=== PATIENT | male | born 1960 | race Caucasian/White ===

== ENCOUNTER 2018-05-01 23:43 | Emergency (ER) | payer OTHER ==
[~2018-05-01] VITALS: Ht 185.4 cm; Wt 99.8 kg
[2018-05-02 01:31] VITALS: BP 123/82
== END 2018-05-02 03:10 | disposition home or self-care (01) ==
LOC: ER 23:46
DX: L76.82 Other postprocedural complications of skin and subcutaneous tissue (principal)
CPT/HCPCS: 99282; J7030

== ENCOUNTER 2019-02-15 15:19 | Emergency (ER) | payer OTHER ==
[~2019-02-15] VITALS: Ht 170.2 cm; Wt 90.7 kg
[2019-02-15 16:55] LABS: Basophils # (auto) 0 uL; Basophils % (auto) 0.2 % (0.0-2.0); Eosinophils # (auto) 0 uL; Eosinophils % (auto) 0.1 % (0.0-7.0); Hematocrit 34.6 % (41.0-53.0); Hemoglobin 11.1 g/dL (13.5-17.5); Lymphocytes # (auto) 0.9 uL; Mean Corpuscular Volume 81.3 fL (80.0-100.0); Monocytes # (auto) 0.3 uL; Monocytes % (auto) 2.5 % (0.0-12.0); Neutrophils # (auto) 12.9 uL; Neutrophils % (auto) 91.2 % (37.0-80.0); Platelet Count (auto) 537 10^3/uL (140-450); Red Blood Cells 4.26 10^6/uL (4.5-5.90); Red Cell Distribution Width 17.9 % (11.8-14.3); White Blood Cell 14.1 10^3/uL (4.4-10.8)
[2019-02-15 17:06] LABS: Albumin 3.3 g/dL (3.4-5.0); Anion Gap 9 (5-15); Blood Urea Nitrogen 12 mg/dL (7-18); Calcium 9.9 mg/dL (8.5-10.1); Carbon Dioxide 27 mmol/L (21-32); Chloride 99 mmol/L (98-107); Glucose 158 mg/dL (74-106); Potassium 3.9 mmol/L (3.5-5.1); Sodium 135 mmol/L (136-145)
[2019-02-15 17:08] LABS: Alanine Aminotransferase 14 U/L (16-61); Aspartate Aminotransferase 12 U/L (15-37); BUN/Creatinine Ratio 10.5; GFR African American 85 mL/min; GFR Non-African American 70 mL/min
[2019-02-15 17:13] LABS: Alkaline Phosphatase 95 U/L (45-117); Bilirubin, Total 0.5 mg/dL (0.2-1.0); Total Protein 8.2 g/dL (6.4-8.2)
[2019-02-15] MEDS ORDERED: SODIUM CHLORIDE 0.9% 1,000 ML IVB ONE ×2 (19:37→20:20)
[2019-02-15] MEDS ORDERED: HYDROmorphone HCL 2 MG/ML VL IV ONE ×2 (20:15→23:00)
[2019-02-15] MEDS ORDERED: ONDANSETRON HCL 4 MG/2 ML VIAL IV ONE (20:15)
[2019-02-15 20:23] LABS: Magnesium 2.4 mg/dL (1.6-2.6)
[2019-02-15 20:32] LABS: INR 1.1 (0.9-1.15); Partial Thromboplastin Time 27.7 sec (23.78-33.04); Prothrombin Time 11.7 sec (9.27-12.13)
[2019-02-15] MEDS ORDERED: metroNIDAZOLE 500MG/100ML 100 ML IV ONE (23:00)
[2019-02-15] MEDS ORDERED: PROMETHAZINE HCL 25 MG/ML 1ML IV ONE (23:00)
[2019-02-15] MEDS ORDERED: cefTRIAXone 1GM/50ML D5W 50 ML IV ONE (23:00)
[2019-02-16] MEDS ORDERED: HYDROmorphone HCL 2 MG/ML VL IV ONE ×2 (03:00→09:30)
[2019-02-16 04:58] LABS: Urine Bacteria FEW /hpf (None Seen); Urine Blood Negative /uL (Negative); Urine Hyaline Cast FEW /lpf (0 - 2); Urine Mucus FEW (None Seen); Urine Specific Gravity 1.024 (1.001-1.035); Urine WBC 13 /hpf (0 - 3)
[2019-02-16 09:18] VITALS: BP 123/77
[2019-02-16] MEDS ORDERED: PROMETHAZINE HCL 25 MG/ML 1ML IV ONE (09:30)
== END 2019-02-16 09:48 | disposition short-term general hospital (02) ==
LOC: EDBD 15:19 → ER 15:42
DX: K56.609 Unspecified intestinal obstruction, unspecified as to partial versus complete obstruction (principal); K59.00 Constipation, unspecified; C19 Malignant neoplasm of rectosigmoid junction; D64.9 Anemia, unspecified; R07.9 Chest pain, unspecified
CPT/HCPCS: 36415; 71045; 74176; 80053; 81001; 82150; 83690; 83735; 84484; 85025; 85610; 85730; 87040; 93005; 94761; 96361; 96365; 96367; 96375; 96376; 99285; J0696; J1170; J2405; J2550; J3490; J7030

== ENCOUNTER 2020-05-04 12:23 | Inpatient (IN) | payer OTHER ==
[~2020-05-04] VITALS: Ht 177.8 cm; Wt 81.5 kg
[2020-05-04] MEDS ORDERED: SODIUM CHLORIDE 0.9% 500 ML IV ONE (12:33)
[2020-05-04] MEDS ORDERED: HYDROmorphone HCL 2 MG/ML VL IV ONE (12:45)
[2020-05-04] MEDS ORDERED: ONDANSETRON HCL 4 MG/2 ML VIAL IV ONE (12:45)
[2020-05-04 13:23] LABS: Eosinophils # (auto) 0 10 ^3/uL (0-0.8); Lymphocytes # (auto) 0.7 10 ^3/uL (0.4-5.4)
[2020-05-04 13:24] LABS: Basophils # (auto) 0.1 10 ^3/uL (0-0.2); Basophils % (auto) 0.4 % (0.0-2.0); Hematocrit 28.5 % (41.0-53.0); Hemoglobin 8.5 g/dL (13.5-17.5); Lymphocytes % (auto) 3.5 % (10.0-50.0); Mean Corpuscular Hemoglobin 23.2 pg (28.0-32.0); Mean Corpuscular Hgb Conc. 29.7 g/dL (32.0-36.0); Mean Corpuscular Volume 78.3 fL (80.0-100.0); Monocytes # (auto) 0.6 10 ^3/uL (0-1.3); Monocytes % (auto) 2.9 % (0.0-12.0); Neutrophils # (auto) 18.2 10 ^3/uL (1.6-8.6); Neutrophils % (auto) 93.2 % (37.0-80.0); Platelet Count (auto) 646 10^3/uL (140-450); Red Blood Cells 3.64 10^6/uL (4.5-5.90); White Blood Cell 19.6 10^3/uL (4.4-10.8)
[2020-05-04 13:25] LABS: Red Cell Distribution Width 22.8 % (11.8-14.3)
[2020-05-04 13:32] LABS: Albumin 1.8 g/dL (3.4-5.0); Calcium 9.1 mg/dL (8.5-10.1); Potassium 4.8 mmol/L (3.5-5.1)
[2020-05-04 13:36] LABS: BUN/Creatinine Ratio 12.1; Bilirubin, Total 0.4 mg/dL (0.2-1.0)
[2020-05-04 14:34] LABS: Urine Bacteria NONE SEEN /hpf (None Seen); Urine Blood 1+ /uL (Negative); Urine Mucus FEW (None Seen); Urine WBC 915 /hpf (0 - 3); Urine WBC Clumps PRESENT /hpf (None Seen)
[2020-05-04] MEDS ORDERED: cefTRIAXone 1GM/50ML D5W 50 ML IV ONE (15:00)
[2020-05-04] MEDS ORDERED: MORPHINE SULF INJ 2 MG/ML SYRINGE 1ML IV PRN (15:45)
[2020-05-04] MEDS ORDERED: NITROGLYCERIN 0.4 MG SL TAB SL PRN (15:45)
[2020-05-04] MEDS ORDERED: HYDROmorphone HCL 2 MG/ML VL IV PRN (16:30)
[2020-05-04] MEDS ORDERED: cefTRIAXone SOD 1,000 MG VL IM ONE (16:30)
[2020-05-04] MEDS ORDERED: ONDANSETRON HCL 4 MG/2 ML VIAL IV PRN (16:30)
--- NOTE | 2020-05-04 17:13 | NUR ---
MS admit from ER OLIVIER MELÉNDEZ admitted to tele/MS after SBAR received. Patient oriented to SHAGGY CHRISTIANSON, RN primary RN, unit, room, bed, and unit policies regarding patient care and visiting hours. Patient weighed by bedscale and encouraged to call if they need something. All questions and concerns addressed, patient verbalized understanding.
--- NOTE | 2020-05-04 17:30 | NUR ---
Skin Assessment/Drains Upon assessment of patient this RN found multiple drains not previously noted in report. Patient has a left and right nephrostomy tube, right mid back MARTIR drain, and left lower quadrant colostomy bag. Patient also has a left upper chest port-a-cath that cannot be accessed. Additionally, patient has a working Dilaudid pump that is accessed through his right lower quadrant, per label to pump Dilaudid dosage is 1.5 mg Q15 min. No previous mention of Dilaudid pump, will notify MD. Patient noted to have a large mass to rectal area, pictures taken, Optifoam applied. Wound consult ordered per protocol. Patient also states he has not eaten in months, dietary consult ordered per protocol.
[2020-05-04 18:08] VITALS: BP 96/71
[2020-05-04] MEDS ORDERED: HYDR4TAB2 PO (18:59)
--- NOTE | 2020-05-04 19:15 | NUR ---
Call back from MD Call back from Dr. Finn. Made MD aware of patient's unrelieved pain. Notified Dr. Finn of patient's dilaudid pump brought from home and dosage. New orders given to increase frequency of ordered dilaudid. Will adjust existing order.
--- NOTE | 2020-05-04 19:24 | NUR ---
Closing Shift Note Patient resting in bed. Pain reported. Timothy hospitalist. New orders given for frequency dose in pain medication. Report given. Will endorse care to the shift production supervisor RN. Sitter at bedside for safety. Addendum: 05/04/20 at 1925 by SHAGGY CHRISTIANSON RN RN No sitter at bedside.
[2020-05-04] MEDS: HYDROmorphone HCL 2 MG/ML VL IV PRN ×2 (21:30→22:55)
[2020-05-04 22:00] VITALS: BP 103/77
[2020-05-04 22:33] LABS: Basophils # (auto) 0.1 10 ^3/uL (0-0.2); Basophils % (auto) 0.3 % (0.0-2.0); Eosinophils # (auto) 0 10 ^3/uL (0-0.8); Hematocrit 29.5 % (41.0-53.0); Hemoglobin 9.1 g/dL (13.5-17.5); Lymphocytes # (auto) 1.2 10 ^3/uL (0.4-5.4); Lymphocytes % (auto) 4.5 % (10.0-50.0); Mean Corpuscular Hgb Conc. 30.8 g/dL (32.0-36.0); Mean Corpuscular Volume 77.7 fL (80.0-100.0); Monocytes # (auto) 0.8 10 ^3/uL (0-1.3); Monocytes % (auto) 2.9 % (0.0-12.0); Neutrophils # (auto) 23.9 10 ^3/uL (1.6-8.6); Neutrophils % (auto) 92.3 % (37.0-80.0); Platelet Count (auto) 720 10^3/uL (140-450); Red Blood Cells 3.79 10^6/uL (4.5-5.90); White Blood Cell 25.9 10^3/uL (4.4-10.8)
[2020-05-04 22:35] LABS: Red Cell Distribution Width 22.8 % (11.8-14.3)
[2020-05-04 22:50] LABS: Potassium 4.5 mmol/L (3.5-5.1); Sodium 127 mmol/L (136-145)
[2020-05-04 22:51] LABS: Albumin 1.8 g/dL (3.4-5.0); Anion Gap 13 (5-15); Blood Urea Nitrogen 29 mg/dL (7-18); Carbon Dioxide 20 mmol/L (21-32); Chloride 94 mmol/L (98-107); Glucose 97 mg/dL (74-106)
[2020-05-04 22:55] LABS: Alanine Aminotransferase 6 U/L (16-61); Alkaline Phosphatase 135 U/L (45-117); Aspartate Aminotransferase 31 U/L (15-37); BUN/Creatinine Ratio 12.2; Bilirubin, Total 0.3 mg/dL (0.2-1.0); GFR African American 36 mL/min; GFR Non-African American 30 mL/min; Total Protein 8.5 g/dL (6.4-8.2)
--- NOTE | 2020-05-05 00:24 | NUR ---
Opening Shift Note Received report from LOKI Johnson. Assumed care of patient,pt AAOx4 to person, place, time and situation. pt c/o pain 10/10 on WBS. pt educated on use of his personal pain pump and his PRN medications he has available and to call if he is in need of anything. No S/S of distress/SOB or pain. Instructed on POC and to call for assist PRN. Fall precaution measures in place, will continue to monitor for changes Q1hr and PRN.
--- NOTE | 2020-05-05 00:26 | NUR ---
SPECIMEN TRANSPORTER stated pt's oxygen saturation was 85%, pt was immediately assessed and placed on oxygen via NC and oxygen saturations were brought up to 95%. will continue to monitor pt for s/s of respiratory distress Q1H and assess the safety of continual doses of pain medications. pt is aware of this as well and verbally repeats his understanding.
--- NOTE | 2020-05-05 01:00 | NUR ---
pt c/o pain 10/10 despite his own pain pump regulation and fentanyl patches. pt is also verbally requesting to be made a DNR. MD Ng was paged via telephone, still awaiting a call back.
[2020-05-05] MEDS: HYDROmorphone HCL 2 MG/ML VL IV PRN ×9 (01:09→21:36)
--- NOTE | 2020-05-05 01:55 | NUR ---
MD diaz paged for pt a second due to the fact the first page was never responded to.
--- NOTE | 2020-05-05 02:30 | NUR ---
Located MD Ng in his office and spoke to him in person, made MD aware of pt's personal dilauded pain pump and the dosage amount and bolus amount, the fentanyl patches the pt is wearing and their dosages, as well as the fact pt is getting dilauded IV Q1H and his oxygen saturations decrease with no relief in pt's pain. notified MD of pt's DNR request as well. stated that either he or the next shifts doctor will deal with the information given to him.
[2020-05-05 05:00] VITALS: BP 103/74
--- NOTE | 2020-05-05 07:30 | NUR ---
Opening Shift Note Assuming care of patient at this time. Patient is awake and alert. Patient complains of pain 10/10 that is unrelieved by PRN medications. Bed is locked and lowered with side rails up x2. Instructed patient on the plan of care for today and to call for assistance as needed. Call light within reach. Will continue to round hourly and as needed.
[2020-05-05 09:00] VITALS: BP 105/74
[2020-05-05] MEDS ORDERED: cefTRIAXone 1GM/50ML D5W 50 ML IV SCH (10:00)
--- NOTE | 2020-05-05 10:25 | NUR ---
WOUND CARE NOTE: Wound care in to see patient per wound care request regarding "sacral perianal ulcer" that are noted present on admission. Bedside nurse took photograph of patient's wound upon admission for reference. Patient is 60 years old male admitted for Suspected Sepsis, Chronic Pain, Stage 4 colorectal cancer. Patient is resting in bed in Rm. 270B. Patient is awake, alert and oriented. Patient states all over and specially in every movement. He's taking to Dr. Adams and will order him some pain medication. He needs assistance in turning and repositioning and his Artem score is 12. Skin/wound assessment done with the assistance of patient's nurse, LOKI Johnson. 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 Wound is red, raised with moderate serous drainage, with mild odor noted. Cleansed patient's rectal wound with wound cleanser, patted dry with gauze and applied large abd pad. Patient tolerated well, repositioned patient for comfort. LOKI Johnson at bedside. RECOMMENDATION: Nursing to continue with Daily/PRN dressing change to rectal fungating tumor per MD order, Dietary consult, frequent turning and repositioning schedule as condition permits, redistribute pressure points with pillows, air mattress (ordered), frequent annika care/check, keep clean and dry, continue monitoring by wound care while patient is hospitalized. Addendum: 05/05/20 at 1521 by Seema Harper RN Amended: Links added.
[2020-05-05] MEDS ORDERED: LIDOCAINE HCL 5 % TOP OINT 35 GM TOP PRN (10:45)
[2020-05-05] MEDS ORDERED: GABA300C10 PO (11:09)
[2020-05-05] MEDS ORDERED: OXYB5TAB24 PO (11:09)
[2020-05-05] MEDS ORDERED: DOCU100T15 PO (11:10)
[2020-05-05] MEDS ORDERED: MEROPENEM 1GM IVPB 100 ML IV ONE (11:15)
[2020-05-05] MEDS: SUCRALFATE 1 GM/10 ML ORAL SUSP PO SCH ×3 (11:39→21:36)
[2020-05-05] MEDS: LINEZOLID 600MG/300ML 300 ML IV SCH ×2 (11:41→22:26)
[2020-05-05] MEDS: SODIUM CHLORIDE 0.9% 1,000 ML IV SCH (11:44)
--- NOTE | 2020-05-05 12:02 | NUR ---
Assessment Patient is a 60-year-old male who is alert and oriented prior to admission patient lived home with his and functioned with assistance. Per patient his helps him with his ADLs. Per patient he has a hospital bed, wheelchair, walker and shower chair for home use. Advised patient there is a social service consult for hospice. Per patient he is on service with [facility] and would like to resume service with agency. Informed patient clinical information will be faxed to [facility]. Informed patient he has the right to participate in all discharge planning. Patient verbalized understanding discharge plan. Faxed clinical information to [facility]. Per Kira with [facility] they will resume service upon discharge day. Transportation will be arrange upon d/c . Addendum: 05/05/20 at 1203 by JEANNA MAIN Amended: Links added.
--- NOTE | 2020-05-05 12:29 | NUR ---
Nutrition Assessment/consult Note please see attached link for complete assessment [employer] needs BW 66 [id number] kcals (30-33 kcal/kgBW), Est Protein needs: 66-85 gms/day (1.0-1.3 gm/kgBW r/t severe hypoalb). Will continue to monitor and reassess prn. Addendum: 05/05/20 at [address] Amended: Links added.
[2020-05-05 13:00] VITALS: BP 107/78
--- NOTE | 2020-05-05 14:35 | NUR ---
Dressing Change Patient's dressing to perianal area changed once again at this time, lidocaine applied. Patient tolerated well.
[2020-05-05] MEDS: LIDOCAINE HCL 5 % TOP OINT 35 GM TOP PRN (14:37)
--- NOTE | 2020-05-05 14:43 | NUR ---
AIR MATTRESS: Air mattress ordered at [facility]. No ETA given, per tech, entry level truck driver will call for ETA. Reference #[id number]. Please call [facility] at if needed to follow up. Addendum: 05/05/20 at 1444 by Seema Harper RN Amended: Links added.
[2020-05-05] MEDS: OXYBUTYNIN CHL 5 MG TAB PO SCH ×2 (15:30→21:35)
[2020-05-05] MEDS: GABAPENTIN 400 MG CAP PO SCH ×2 (15:30→21:35)
[2020-05-05] MEDS: ONDANSETRON HCL 4 MG/2 ML VIAL IV PRN (16:32)
[2020-05-05 17:00] VITALS: BP 112/75
--- NOTE | 2020-05-05 19:20 | NUR ---
Specialty Bed Specialty Bed is located outside of patient's room. Notified airfield services officer RN that patient needs to be transferred to specialty bed. Kimberly, airfield services officer RN aware.
--- NOTE | 2020-05-05 19:30 | NUR ---
Opening Shift Note Received report from tiffany Johnson RN. Assumed care of patient, awake and alert. No S/S of distress/SOB, but c/o pain to all over body of 10/10. Pain medication given as ordered. Instructed on POC and to call for assist PRN, will continue to monitor for changes Q1hr and PRN. Bed placed in lowest position, bed alarm turned on and call light.
--- NOTE | 2020-05-05 19:30 | NUR ---
Closing Shift Note Patient resting in bed. Patient states pain is unrelieved by pain medication. Notified patient that pain management consult has been called. Report given. Notified associate project manager RNKimberly, that patient needs to be moved to specialty bed. Will endorse care to the associate project manager RN.
[2020-05-05] MEDS: DOCUSATE SOD 100 MG CAP PO SCH (21:35)
[2020-05-05 22:11] VITALS: BP_SYST 119; BP_SYST 172; BP_DIAS 112; BP_DIAS 80
[2020-05-05] MEDS: MEROPENEM 1GM IVPB 100 ML IV SCH (22:22)
[2020-05-06] MEDS: HYDROmorphone HCL 2 MG/ML VL IV PRN ×8 (00:16→23:45)
--- NOTE | 2020-05-06 00:48 | NUR ---
Report given to LOKI Armendariz. Patient is resting in bed with eyes closed, no distress noted and patient just received pain medication as ordered.
--- NOTE | 2020-05-06 00:48 | NUR ---
Assumed care of patient who is resting supine in bed with eyes closed. Respirations are even and non labored. Currently on 2L NC. IV in right wrist is intact and patent. Currently infusing ABX according to orders. Bed is in low locked position with side rails up x2. Call light is within reach and patient encouraged to call for assistance when needed. Will continue to monitor for changes PRN.
[2020-05-06] MEDS: SODIUM CHLORIDE 0.9% 1,000 ML IV SCH ×2 (01:23→13:58)
[2020-05-06 05:00] VITALS: BP 114/80
[2020-05-06] MEDS: SUCRALFATE 1 GM/10 ML ORAL SUSP PO SCH ×4 (05:57→21:41)
[2020-05-06] MEDS: GABAPENTIN 400 MG CAP PO SCH ×3 (05:57→21:41)
[2020-05-06] MEDS: OXYBUTYNIN CHL 5 MG TAB PO SCH ×3 (05:57→21:41)
[2020-05-06] MEDS ORDERED: IOHEXOL 300 MG/ML 100ML BOTTLE IJ ONE (07:41)
[2020-05-06] MEDS ORDERED: LIDOCAINE 2%HCL (LOCAL ANESTH.) INJ 20ML MDV ONE (07:41)
[2020-05-06 08:39] VITALS: BP 157/98
--- NOTE | 2020-05-06 08:45 | NUR ---
PATIENT OFF UNIT FOR NEPHROSTOMY PROCEDURE. WILL RESUME IV MEDICATION UPON RETURN.
--- NOTE | 2020-05-06 09:32 | NUR ---
BOTH PERIPHERAL IV INFILTRATED. WILL RESUMED IV MEDS ONCE AN ACCESS IS ESTABLISHED.
[2020-05-06] MEDS: LINEZOLID 600MG/300ML 300 ML IV SCH ×2 (09:54→21:41)
[2020-05-06] MEDS: DOCUSATE SOD 100 MG CAP PO SCH ×2 (09:55→21:41)
[2020-05-06 10:57] LABS: Basophils # (auto) 0 10 ^3/uL (0-0.2); Eosinophils # (auto) 0 10 ^3/uL (0-0.8); Eosinophils % (auto) 0.1 % (0.0-7.0); Monocytes # (auto) 0.5 10 ^3/uL (0-1.3)
[2020-05-06 10:58] LABS: Basophils % (auto) 0.1 % (0.0-2.0); Hematocrit 27.9 % (41.0-53.0); Hemoglobin 8.1 g/dL (13.5-17.5); Lymphocytes # (auto) 0.8 10 ^3/uL (0.4-5.4); Lymphocytes % (auto) 4.5 % (10.0-50.0); Mean Corpuscular Hemoglobin 23.5 pg (28.0-32.0); Mean Corpuscular Hgb Conc. 28.9 g/dL (32.0-36.0); Mean Corpuscular Volume 81.3 fL (80.0-100.0); Monocytes % (auto) 2.7 % (0.0-12.0); Neutrophils # (auto) 15.9 10 ^3/uL (1.6-8.6); Neutrophils % (auto) 92.6 % (37.0-80.0); Platelet Count (auto) 551 10^3/uL (140-450); Red Blood Cells 3.43 10^6/uL (4.5-5.90); White Blood Cell 17.2 10^3/uL (4.4-10.8)
[2020-05-06 11:05] LABS: Red Cell Distribution Width 23.9 % (11.8-14.3)
[2020-05-06 11:24] LABS: Calcium 8.6 mg/dL (8.5-10.1); Potassium 3.7 mmol/L (3.5-5.1)
[2020-05-06 11:26] LABS: BUN/Creatinine Ratio 13.2
--- NOTE | 2020-05-06 12:00 | NUR ---
DR NAVARRO AT BEDSIDE, DISCUSSED PAIN MANAGEMENT WITH PATIENT. WILL CONTINUE TO MONITOR AND CARRY OUT MD'S ORDER.
[2020-05-06 12:49] VITALS: BP 103/70
--- NOTE | 2020-05-06 13:23 | NUR ---
MEDICATED PATIENT WITH PRN MED, FOR 10/10 GENERALIZED CHRONIC PAIN.
--- NOTE | 2020-05-06 13:25 | NUR ---
MERREM IV IS DELAYED DUE TO ZYVOX CURRENTLY INFUSING. PATIENT HAS BEEN OFF UNIT TWICE THUS FAR.
[2020-05-06] MEDS: MEROPENEM 1GM IVPB 100 ML IV SCH ×2 (15:35→22:34)
--- NOTE | 2020-05-06 16:24 | NUR ---
MEDICATED PATIENT WITH PRN MED, FOR 10/10 GENERALIZED CHRONIC PAIN.
[2020-05-06 16:39] VITALS: BP 148/98
--- NOTE | 2020-05-06 18:20 | NUR ---
Dressing change Perianal area changed at this time, lidocaine applied. Patient tolerated well. ABD pad applied
--- NOTE | 2020-05-06 20:03 | NUR ---
Opening Shift Note Assumed care of patient, awake and alert. No S/S of distress/SOB c/o 10/10 pain. Instructed on POC and to call for assist PRN, will continue to monitor for changes Q1hr and PRN.Medicated with Hydromorphone 1mg.i.v.p. as needed for all over pain.
[2020-05-06 21:52] VITALS: BP 118/74
[2020-05-06] MEDS: HYDROmorphone HCL 2 MG TAB PO PRN (22:11)
[2020-05-07] VITALS (7 sets, daily range): BP systolic 91–103; BP diastolic 62–70
[2020-05-07] MEDS: HYDROmorphone HCL 2 MG/ML VL IV PRN ×7 (03:10→20:50)
[2020-05-07] MEDS: SODIUM CHLORIDE 0.9% 1,000 ML IV SCH ×2 (03:33→17:37)
[2020-05-07] MEDS: OXYBUTYNIN CHL 5 MG TAB PO SCH ×3 (05:38→21:21)
[2020-05-07] MEDS: GABAPENTIN 400 MG CAP PO SCH ×3 (05:38→21:21)
[2020-05-07] MEDS: SUCRALFATE 1 GM/10 ML ORAL SUSP PO SCH ×4 (06:00→21:20)
[2020-05-07 06:26] LABS: Basophils # (auto) 0 10 ^3/uL (0-0.2); Basophils % (auto) 0.2 % (0.0-2.0); Eosinophils # (auto) 0.1 10 ^3/uL (0-0.8); Eosinophils % (auto) 0.5 % (0.0-7.0); Hematocrit 25.4 % (41.0-53.0); Hemoglobin 7.7 g/dL (13.5-17.5); Lymphocytes # (auto) 0.7 10 ^3/uL (0.4-5.4); Lymphocytes % (auto) 4.8 % (10.0-50.0); Mean Corpuscular Hemoglobin 24.6 pg (28.0-32.0); Mean Corpuscular Hgb Conc. 30.4 g/dL (32.0-36.0); Mean Corpuscular Volume 80.9 fL (80.0-100.0); Monocytes # (auto) 0.5 10 ^3/uL (0-1.3); Monocytes % (auto) 3.3 % (0.0-12.0); Neutrophils # (auto) 13.5 10 ^3/uL (1.6-8.6); Neutrophils % (auto) 91.2 % (37.0-80.0); Platelet Count (auto) 526 10^3/uL (140-450); Red Blood Cells 3.14 10^6/uL (4.5-5.90); White Blood Cell 14.8 10^3/uL (4.4-10.8)
[2020-05-07 06:33] LABS: Potassium 3.5 mmol/L (3.5-5.1)
[2020-05-07 06:48] LABS: Albumin 1.6 g/dL (3.4-5.0); BUN/Creatinine Ratio 13.1; Bilirubin, Total 0.4 mg/dL (0.2-1.0); Calcium 8.3 mg/dL (8.5-10.1); Total Protein 7.3 g/dL (6.4-8.2)
--- NOTE | 2020-05-07 06:59 | NUR ---
Total output of nephrostomy tube right side is 500cc light yellow , and left side is 25 cc, blood tinged, J.p bulb no output, Colostomy no output, patient said he is not eating.
--- NOTE | 2020-05-07 07:26 | NUR ---
Care report given to Andrews Bernstein, patient is resting no distress., refused to check his back and repositioning said he is comfortable in his position right now.
--- NOTE | 2020-05-07 07:38 | NUR ---
Assumed care of patient from noc shift rn. Patient is resting in bed with eyes open. Currently on 2L NC. IV in right forearm, intact and patent. Currently infusing NS at 75mls Bed is in low locked position with side rails up x2. Call light is within reach and patient encouraged to call for assistance when needed. Will continue to monitor for changes PRN.
[2020-05-07 08:38] LABS: Urine Bacteria NONE SEEN /hpf (None Seen); Urine Blood 2+ /uL (Negative); Urine Budding Yeast MANY /hpf (None Seen); Urine Mucus FEW (None Seen); Urine WBC 1723 /hpf (0 - 3); Urine WBC Clumps PRESENT /hpf (None Seen)
[2020-05-07 08:41] LABS: Urine Specific Gravity 1.345 (1.001-1.035)
[2020-05-07] MEDS: DOCUSATE SOD 100 MG CAP PO SCH ×2 (09:38→21:20)
[2020-05-07] MEDS: LINEZOLID 600MG/300ML 300 ML IV SCH ×2 (09:38→21:20)
--- NOTE | 2020-05-07 10:20 | NUR ---
DR. PAYNE AT BEDSIDE, DISCUSSED PLAN OF CARE WITH PATIENT. ANSWERED PATIENT'S CONCERNS ABOUT MARTIR DRAIN. WILL CONTINUE TO MONITOR Q1HR AND PRN
[2020-05-07] MEDS: MEROPENEM 1GM IVPB 100 ML IV SCH ×2 (11:44→21:20)
--- NOTE | 2020-05-07 18:24 | NUR ---
Dressing change Perianal area changed at this time, lidocaine applied. Patient tolerated well. ABD pad applied
[2020-05-07] MEDS: LIDOCAINE HCL 5 % TOP OINT 35 GM TOP PRN (19:08)
--- NOTE | 2020-05-07 20:50 | NUR ---
Medicated with hydromorphone 1mg.i.v.p for pain level of 10/10, for all over pain.
[2020-05-08] VITALS (8 sets, daily range): BP systolic 86–114; BP diastolic 57–78
[2020-05-08] MEDS ORDERED: SODIUM CHLORIDE 0.9% 1,000 ML IV ONE (00:15)
--- NOTE | 2020-05-08 00:19 | NUR ---
Called Dr. Man and relayed patient blood pressure of 83/59, with order of one liter N.S. bolus, and after N.s. at 100 cc/hour.
[2020-05-08] MEDS: SODIUM CHLORIDE 0.9% 1,000 ML IV SCH ×2 (01:31→13:52)
[2020-05-08] MEDS: OXYBUTYNIN CHL 5 MG TAB PO SCH ×3 (05:54→23:08)
[2020-05-08] MEDS: GABAPENTIN 400 MG CAP PO SCH ×3 (05:55→23:08)
[2020-05-08] MEDS: SUCRALFATE 1 GM/10 ML ORAL SUSP PO SCH ×4 (05:55→23:07)
--- NOTE | 2020-05-08 06:00 | NUR ---
Relayed to Dr. Magda Grover the blood pressure is low 86/57, pulse 94, and said maintain the iv.fluid of 100 cc/hour and it takes time for pain med. to out of his system, and if it did not improve transfer to D.[facility]. And at 0625 blood pressure is 95/65, pulse is 88 after encouraged and given him something to eat like Oswald crackers and apple juice.
--- NOTE | 2020-05-08 07:40 | NUR ---
Care report given to Jason Hawkins, patient is resting no distress.
--- NOTE | 2020-05-08 07:45 | NUR ---
RECEIVED REPORT AND ASSUMED CARE OF PT. A/OX4. DENIED S/S ACUTE DISTRESS. UPDATE PT WITH POC. BED AT LOWEST POSITION. CALL LIGHT AND BELONGINGS WITHIN REACH. WILL CONT TO MONITOR.
[2020-05-08 09:37] LABS: White Blood Cell 17.2 10^3/uL (4.4-10.8)
[2020-05-08 09:40] LABS: Hematocrit 24.9 % (41.0-53.0); Mean Corpuscular Hemoglobin 23.7 pg (28.0-32.0); Mean Corpuscular Hgb Conc. 28.3 g/dL (32.0-36.0); Mean Corpuscular Volume 83.7 fL (80.0-100.0); Platelet Count (auto) 452 10^3/uL (140-450); Red Blood Cells 2.98 10^6/uL (4.5-5.90)
[2020-05-08 09:42] LABS: Red Cell Distribution Width 24.7 % (11.8-14.3)
--- NOTE | 2020-05-08 09:44 | NUR ---
CRITICAL HGB, 7.[address] PARIKH MADE AWARE.
[2020-05-08] MEDS: DOCUSATE SOD 100 MG CAP PO SCH ×2 (10:21→23:08)
[2020-05-08] MEDS: MEROPENEM 1GM IVPB 100 ML IV SCH ×2 (10:21→23:47)
[2020-05-08] MEDS: LINEZOLID 600MG/300ML 300 ML IV SCH ×2 (10:21→23:08)
[2020-05-08 10:22] LABS: BUN/Creatinine Ratio 11.1; Calcium 7.8 mg/dL (8.5-10.1); Potassium 3.8 mmol/L (3.5-5.1)
[2020-05-08 10:25] LABS: Band Neutrophils % (manual) 0; Basophils % (manual) 0 (0.0-2.0); Blast Cells 0; Eosinophils % (manual) 0 (0-7); Metamyelocytes % 0; Promyelocytes % 0; Reactive Lymphocytes 0
[2020-05-08 10:26] LABS: Lymphocytes % (manual) 8 (10.0-50.0); Monocytes % (manual) 1 (0-12); Myelocytes % 1
--- NOTE | 2020-05-08 12:22 | NUR ---
Nutrition Followup Notes Wt: 75 kg Pt was sleeping with no family by bedside. per records pt with ca colon on hospice. pt with no distress noted currently on regular diet with inadequate Po of avg 50% x 5 per RN doc [employer] needs BW 66 [id number] kcals (30-33 kcal/kgBW), Est Protein needs: 66-85 gms/day (1.0-1.3 gm/kgBW r/t severe hypoalb). Will continue to monitor and reassess prn. LABS: BUN 23 H, CREAT 1.75 H CA 8.3 L, ALB 1.6 L GI: Pt had 1 BM yesterday per RN doc BS: 11 high risk. Refer to wound assessment report for full details. PES: Altered nutrition related lab values r.t current chronic medical condition aeb elev RFT severe hypoalb Increased nutrient needs r.t chronic medical condition aeb pt`s with cancer hypoalb and poor PO Comments: Continue to follow up PO intake, skin status. f/u mod 3-5 days 1) consider prostat 1 packet bid if RFT improve. 2) consider alternate nutrition support if PO continues to be low. 3) consider ensure Enlive 1 carton bid. 4) consider Megace if appetite is low. 5) continue current plan of care
[2020-05-08] MEDS ORDERED: KETOROLAC TROMETH 30 MG/ML 1ML VIAL IV ONE (12:45)
--- NOTE | 2020-05-08 14:20 | NUR ---
PT REFUSING BLOOD TRANSFUSION PT IS [employer]EHOVAH WITNESS BELIEVER. DR RICHARDSON MADE AWARE.
[2020-05-08 15:26] LABS: Hematocrit 24.5 % (41.0-53.0); Hemoglobin 7.1 g/dL (13.5-17.5)
--- NOTE | 2020-05-08 16:08 | NUR ---
Placed pt on bedside continuous POX monitor, alarms set and audible. HR 80, RR 18, SPO2 99% on 2lpm nasal cannula. No s/s of distress.
[2020-05-08] MEDS: HYDROmorphone HCL 2 MG/ML VL IV PRN ×2 (20:20→23:46)
--- NOTE | 2020-05-08 22:26 | NUR ---
RT NOTE PT ON CONT BEDSIDE POX. PT SHOWING NO SIGNS OF DISTRESS. PT DENIES ANY SOB. PT ON 2 LPM NC WITH AN SPO2 OF 100%. PT KNOWS TO HAVE RT PAGED IF NEED.
[2020-05-09] MEDS: HYDROmorphone HCL 2 MG/ML VL IV PRN ×6 (02:28→23:56)
[2020-05-09] MEDS: SODIUM CHLORIDE 0.9% 1,000 ML IV SCH ×3 (02:41→17:21)
[2020-05-09 05:00] VITALS: BP 118/68
[2020-05-09] MEDS: GABAPENTIN 400 MG CAP PO SCH ×3 (05:41→21:20)
[2020-05-09] MEDS: OXYBUTYNIN CHL 5 MG TAB PO SCH ×3 (05:41→21:20)
[2020-05-09 09:00] VITALS: BP 86/62
[2020-05-09] MEDS: LINEZOLID 600MG/300ML 300 ML IV SCH ×2 (10:16→21:20)
[2020-05-09] MEDS: MEROPENEM 1GM IVPB 100 ML IV SCH ×2 (10:17→23:03)
[2020-05-09] MEDS: DOCUSATE SOD 100 MG CAP PO SCH ×2 (10:17→21:20)
[2020-05-09] MEDS: SUCRALFATE 1 GM/10 ML ORAL SUSP PO SCH ×3 (11:30→21:20)
[2020-05-09 13:00] VITALS: BP 96/65
[2020-05-09 16:23] LABS: Basophils # (auto) 0 10 ^3/uL (0-0.2); Basophils % (auto) 0.1 % (0.0-2.0); Eosinophils # (auto) 0.1 10 ^3/uL (0-0.8)
[2020-05-09 16:24] LABS: Lymphocytes # (auto) 0.7 10 ^3/uL (0.4-5.4); Lymphocytes % (auto) 4.9 % (10.0-50.0); Mean Corpuscular Hgb Conc. 30.2 g/dL (32.0-36.0); Mean Corpuscular Volume 79.7 fL (80.0-100.0); Monocytes # (auto) 0.5 10 ^3/uL (0-1.3); Monocytes % (auto) 3.4 % (0.0-12.0); Neutrophils # (auto) 12.6 10 ^3/uL (1.6-8.6); Neutrophils % (auto) 90.6 % (37.0-80.0); Platelet Count (auto) 437 10^3/uL (140-450); Red Blood Cells 2.76 10^6/uL (4.5-5.90)
--- NOTE | 2020-05-09 16:24 | NUR ---
Pt has continues at bedside
--- NOTE | 2020-05-09 16:32 | NUR ---
Covering for primary nurse, received a call from lab regarding HB 6.6, HCT 22.0. Will inform primary nurse, Dr. Shaikh giang.
[2020-05-09 16:33] LABS: Hemoglobin 6.6 g/dL (13.5-17.5); Red Cell Distribution Width 24.1 % (11.8-14.3)
[2020-05-09 16:41] LABS: BUN/Creatinine Ratio 11.9; Calcium 7.5 mg/dL (8.5-10.1); Magnesium 1.9 mg/dL (1.6-2.6); Potassium 3.7 mmol/L (3.5-5.1)
[2020-05-09 17:00] VITALS: BP 96/60
--- NOTE | 2020-05-09 18:59 | NUR ---
CRITICAL HGB LEVEL,6.[address] YANG AND WAITING FOR A CALL BACK.PT REFUSING ANY BLOOD TRANSFUSION PT IS JEHOVAH WITNESS BELIEVER.
--- NOTE | 2020-05-09 19:20 | NUR ---
Opening Shift Note Assumed care of patient, awake and alert. No S/S of distress/SOB or pain. Instructed on POC and to call for assist PRN, will continue to monitor for changes Q1hr and PRN. Bed locked in lowest position, HOB elevated at least 30 degrees, side rails up x 2 and call light is within reach.
[2020-05-09 22:00] VITALS: BP 93/57
[2020-05-10] MEDS: SODIUM CHLORIDE 0.9% 1,000 ML IV SCH (02:30)
[2020-05-10] MEDS: HYDROmorphone HCL 2 MG/ML VL IV PRN ×5 (03:12→21:28)
[2020-05-10 05:00] VITALS: BP 95/62
[2020-05-10] MEDS: HYDROmorphone HCL 2 MG TAB PO PRN ×3 (05:15→23:24)
[2020-05-10 06:01] LABS: Basophils # (auto) 0 10 ^3/uL (0-0.2); Mean Corpuscular Hemoglobin 24.5 pg (28.0-32.0); Neutrophils # (auto) 13.7 10 ^3/uL (1.6-8.6)
[2020-05-10 06:04] LABS: Basophils % (auto) 0.1 % (0.0-2.0); Eosinophils # (auto) 0.1 10 ^3/uL (0-0.8); Hematocrit 21.6 % (41.0-53.0); Lymphocytes # (auto) 0.8 10 ^3/uL (0.4-5.4); Lymphocytes % (auto) 5.5 % (10.0-50.0); Mean Corpuscular Hgb Conc. 30.2 g/dL (32.0-36.0); Monocytes # (auto) 0.4 10 ^3/uL (0-1.3); Monocytes % (auto) 2.9 % (0.0-12.0); Neutrophils % (auto) 90.5 % (37.0-80.0); Platelet Count (auto) 422 10^3/uL (140-450); Red Blood Cells 2.67 10^6/uL (4.5-5.90); White Blood Cell 15.2 10^3/uL (4.4-10.8)
[2020-05-10 06:21] LABS: BUN/Creatinine Ratio 12.2; Calcium 7.4 mg/dL (8.5-10.1); Potassium 3.7 mmol/L (3.5-5.1)
[2020-05-10 06:30] LABS: Red Cell Distribution Width 24.3 % (11.8-14.3)
[2020-05-10] MEDS: GABAPENTIN 400 MG CAP PO SCH ×3 (06:30→21:45)
[2020-05-10] MEDS: OXYBUTYNIN CHL 5 MG TAB PO SCH ×3 (06:30→21:45)
--- NOTE | 2020-05-10 06:30 | NUR ---
CRITICAL LAB CRITICAL LAB OF HEMOGLOBIN 6.5. CALLED. AWAITING CALL BACK.
[2020-05-10 06:31] LABS: Hemoglobin 6.5 g/dL (13.5-17.5)
[2020-05-10] MEDS: SUCRALFATE 1 GM/10 ML ORAL SUSP PO SCH ×4 (06:37→21:44)
--- NOTE | 2020-05-10 07:30 | NUR ---
CLOSING SHIFT NOTE ENDORSED CARE TO DAY SHIFT RN
[2020-05-10 09:00] VITALS: BP 94/64
[2020-05-10] MEDS: LINEZOLID 600MG/300ML 300 ML IV SCH (09:47)
[2020-05-10] MEDS: DOCUSATE SOD 100 MG CAP PO SCH ×2 (11:30→21:44)
[2020-05-10] MEDS: MEROPENEM 1GM IVPB 100 ML IV SCH (11:30)
[2020-05-10] MEDS ORDERED: IRON SUCROSE COMPLEX 200 MG in SODIUM CHL 0.9% 100 ML IV SCH (13:45)
[2020-05-10] MEDS: ONDANSETRON HCL 4 MG/2 ML VIAL IV PRN (13:57)
[2020-05-10] MEDS: CLINDAMYCIN 600MG IV 50 ML IV SCH ×2 (13:58→21:44)
[2020-05-10] MEDS: SODIUM FERR GLUC 125 MG in NS 100 ML IV SCH (14:07)
--- NOTE | 2020-05-10 14:22 | NUR ---
I faxed transfer order/clinical packet to [facility] and [facility].
[2020-05-10 15:00] VITALS: BP 93/65
--- NOTE | 2020-05-10 15:40 | NUR ---
noted pt to have Dilaudid pain pump, set to deliver 2 mg q hour, with 1.5 mg as needed q 15 minutes. pt also getting Dilaudid injection and po. Dr Franklin aware, adjustments to pain medications made. Pain management, Dr Guillermo, paged x2 with no response.
[2020-05-10 17:49] VITALS: BP 98/64
[2020-05-10 21:55] VITALS: BP 93/60
[2020-05-11] MEDS: HYDROmorphone HCL 2 MG/ML VL IV PRN ×5 (01:39→23:46)
[2020-05-11] MEDS: HYDROmorphone HCL 2 MG TAB PO PRN (04:34)
[2020-05-11 05:00] VITALS: BP 95/71
[2020-05-11] MEDS: GABAPENTIN 400 MG CAP PO SCH ×3 (07:30→21:28)
[2020-05-11] MEDS: SUCRALFATE 1 GM/10 ML ORAL SUSP PO SCH ×4 (07:30→21:24)
[2020-05-11] MEDS: OXYBUTYNIN CHL 5 MG TAB PO SCH ×3 (07:30→21:28)
--- NOTE | 2020-05-11 07:30 | NUR ---
Respiratory note: POX: HR 90, RR 18, SPO2 100% ON 2 L NC. PT IS COMFORTABLY SLEEPING.
[2020-05-11] MEDS: CLINDAMYCIN 600MG IV 50 ML IV SCH ×3 (08:05→22:00)
[2020-05-11 09:39] VITALS: BP 84/61
--- NOTE | 2020-05-11 10:13 | NUR ---
DR STEVIE AREVALO. MADE AWARE PAIN NOT CONTROLLED. CHANGES MEDICATION REGIME TO 1MG DILAUDID Q2 HRS ROUND THE CLOCK. PO LESLEE SIEGEL'Sanjiv. REVIEWED CT IMPRESSION. COLOSTOMY BAG FULL. NEPHROSTOMY TUBES PATENT.
[2020-05-11] MEDS: DOCUSATE SOD 100 MG CAP PO SCH ×2 (11:00→21:27)
[2020-05-11] MEDS: SODIUM FERR GLUC 125 MG in NS 100 ML IV SCH (12:00)
--- NOTE | 2020-05-11 12:05 | NUR ---
Nutrition Followup Notes Wt: 84.3 kg, pt wt has fluctuated while in the hospital, first wt was 81.6kg on 05/04, then wt dropped to 66.6kg on 05/04, then 75kg on 05/07, now back to 84.3kg will continue to monitor wt of pt. Pt was with care team with the curtains drawn at time of rounds. Pt is awaiting transfer to Acute Care facility for hospice d/t to colon cancer. Pt is on a regular diet with fair po intake of 61% avg x 3 days per RN note. [employer] needs BW 66 [id number] kcals (30-33 kcal/kgBW), Est Protein needs: 66-85 gms/day (1.0-1.3 gm/kgBW r/t severe hypoalb). Will continue to monitor and reassess prn. LABS: Ca 7.4L, Alb 1.6L GI: Pt with colostomy bag drainage of 425 ml per RN note BS: 14 mod risk. Refer to wound assessment report for full details. PES: Altered nutrition related lab values r.t current chronic medical condition aeb elev RFT severe hypoalb Increased nutrient needs r.t chronic medical condition aeb pt`s with cancer hypoalb and poor PO Comments: Continue to follow up PO intake, skin status. f/u mod 3-5 days 1) consider prostat 1 packet bid if RFT improve. 2) consider alternate nutrition support if PO continues to be low. 3) consider ensure Enlive 1 carton bid. 4) consider Megace if appetite is low. 5) continue current plan of care
[2020-05-11 13:20] VITALS: BP 82/61
--- NOTE | 2020-05-11 15:19 | NUR ---
VIEWED PT SLEEPING PAIN NOW CONTROLLED. ACCESSED SRINI CATH TO LEFT UPPER CHEST WALL WITH UBER NEEDLE. IV INFUSING THER NOW.
[2020-05-11 16:35] VITALS: BP 88/60
--- NOTE | 2020-05-11 17:07 | NUR ---
PT IS DECLINING REPOSITIONING OR DSG CHANGE REPORTS TOO PAINFUL. [facility] CONTACTED EARLIER TO ATTEMPT SERVICING OF PAIN PUMP AND WAS TOLD PT DROPPED FROM HOSPICE OF 05/04/20.
--- NOTE | 2020-05-11 17:50 | NUR ---
Respiratory note: PT CURRENTLY ON NC2L. SPO2 98%, HR 97, RR 18. NO DISTRESS NOTED.
--- NOTE | 2020-05-11 20:00 | NUR ---
PATIENT REFUSED TO TURN. HE SAID, ITS' TOO PAINFUL FOR HIM TO BE TURNED FOR NOW. CONSEQUENCES EXPLAINED, BUT STILL REFUSED.
[2020-05-11 22:00] VITALS: BP 92/62
[2020-05-12] MEDS: HYDROmorphone HCL 2 MG/ML VL IV PRN ×9 (01:47→21:35)
[2020-05-12 05:00] VITALS: BP 87/60
[2020-05-12] MEDS: GABAPENTIN 400 MG CAP PO SCH ×2 (05:37→14:00)
[2020-05-12] MEDS: OXYBUTYNIN CHL 5 MG TAB PO SCH ×3 (05:37→21:34)
[2020-05-12] MEDS: SUCRALFATE 1 GM/10 ML ORAL SUSP PO SCH ×3 (05:37→21:34)
[2020-05-12] MEDS: CLINDAMYCIN 600MG IV 50 ML IV SCH ×2 (05:38→14:00)
[2020-05-12 06:29] VITALS: BP 93/50
--- NOTE | 2020-05-12 08:56 | NUR ---
MEDICATED FOR PAIN 07/10 ASKING FOR DSG CHANGE AT THIS TIME. REQUESTS SPECIFIC STEPS FOR DSG CHANGE AND TO USE LIDOCAINE. PAGED WOUND NURSE TO RESPOND FOR THE DSG CHANGE.
[2020-05-12 09:00] VITALS: BP 97/59
--- NOTE | 2020-05-12 09:41 | NUR ---
[phone], he said they are not able to accept patient at this time-there is nothing more they can offer patient than is being done here-I made Dr. Franklin aware.
[2020-05-12] MEDS: DOCUSATE SOD 100 MG CAP PO SCH (10:30)
--- NOTE | 2020-05-12 11:45 | NUR ---
DSG CHANGE TO GROWTH ON RECTUM. SITE HAS CAULIFLOWER TYPE TEXTURE AND IT BLEEDS EASILY. LIDOCAINE OINTMENT APPLIED GENEROUSLY TO SITE BEFORE PAD APPLIED AND COVERED WITH CLEAR OCCLUSIVE FILM. PT COMMUNICATES WITH HIS WHO REPORTS MAKING HOSPICE ARRANGEMENTS FOR HIM TO RETURN HOME.
[2020-05-12] MEDS: SODIUM FERR GLUC 125 MG in NS 100 ML IV SCH (12:00)
[2020-05-12 13:00] VITALS: BP 89/56
[2020-05-12] MEDS: IRON SUCROSE COMPLEX 200 MG in SODIUM CHL 0.9% 100 ML IV SCH (16:40)
[2020-05-12 17:06] VITALS: BP 90/63
--- NOTE | 2020-05-12 20:44 | NUR ---
0. REPORT OBTAINED ON PATIENT. 1929. PATIENT SEEN. DENIED PAIN. STATED HE HAD JUST BEEN MEDICATED FOR PAIN. MONITORING CONTINUES.
--- NOTE | 2020-05-12 20:47 | NUR ---
2037. COLOSTOMY BAG EMPTY. HOLM CATH IN PLACE WITH NO URINE. NEPHROSTOMY TUBES IN PLACE AND EMPTY.
[2020-05-12 22:00] VITALS: BP 98/64
--- NOTE | 2020-05-12 22:16 | NUR ---
PATIENT NOT HAVING PAIN AT THIS TIME.
--- NOTE | 2020-05-12 23:46 | NUR ---
COLOSTOMY BAG EMPTIED. HALF FULL OF GAS.
[2020-05-13] MEDS: HYDROmorphone HCL 2 MG/ML VL IV PRN ×11 (00:21→22:46)
--- NOTE | 2020-05-13 00:22 | NUR ---
MEDICATED FOR PAIN
[2020-05-13] MEDS: CLINDAMYCIN 600MG IV 50 ML IV SCH ×3 (06:03→22:00)
[2020-05-13] MEDS: OXYBUTYNIN CHL 5 MG TAB PO SCH ×3 (06:03→22:06)
[2020-05-13] MEDS: GABAPENTIN 400 MG CAP PO SCH ×3 (06:03→22:06)
[2020-05-13] MEDS: SUCRALFATE 1 GM/10 ML ORAL SUSP PO SCH ×4 (06:51→22:06)
--- NOTE | 2020-05-13 07:45 | NUR ---
Opening Note Received report from retail shift supervisor RN. Patient is awake, alert and oriented x4. Patient complains of generalized body pain 10/10 and is requesting pain medications. Will medicate per orders. Patient is on room air, respirations even and unlabored. Reviewed plan of care with patient, patient verbalized understanding. Bed in low and locked position, call light within reach. Will continue to monitor Q1 hour and PRN.
[2020-05-13 09:00] VITALS: BP 86/58
--- NOTE | 2020-05-13 10:38 | NUR ---
WOUND CARE NOTE: Wound care in to see patient for skin integrity monitoring. Patient continue resting on air mattress in Rm. 270B. Patient is awake, alert and oriented. Patient reports body aches all over and specially in every movement. He needs assistance in turning and repositioning and his Artem score is 11. Skin/wound assessment done with the assistance of nurse's aidthom Doan. Patient's fungating tumor to rectum remain the same. Wound is red and yellow, raised with moderate serosanguineous drainage, no odor noted. Wound measuring [id number]. Cleansed patient's rectal wound and changed the dressing per MD order. New photograph of wound are taken for reference. Patient tolerated well, repositioned patient for comfort facing his Rt side, redistributed pressure points with pillows. Bed in low position, call daniel on hand, all safety precautions in placed. RECOMMENDATION: Continuation of all wound care orders prescribed by MD, continue with skin/wound plan of care, continue monitoring by wound care while patient is hospitalized. Addendum: 05/13/20 at 1636 by Seema Harper RN Amended: Links added.
[2020-05-13] MEDS: DOCUSATE SOD 100 MG CAP PO SCH ×2 (11:31→22:06)
--- NOTE | 2020-05-13 11:50 | NUR ---
Dr. Franklin at bedside Discussing plan of care with patient and this RN. Patient to discharge today on home hospice. New orders received. Will continue to monitor Q1 hour and PRN.
[2020-05-13] MEDS: IRON SUCROSE COMPLEX 200 MG in SODIUM CHL 0.9% 100 ML IV SCH (12:00)
[2020-05-13 12:40] VITALS: BP 92/60
[2020-05-13 14:08] VITALS: BP 92/60
[2020-05-13] MEDS: ONDANSETRON HCL 4 MG/2 ML VIAL IV PRN (16:00)
--- NOTE | 2020-05-13 16:09 | NUR ---
D/C Planning Regarding social service consult to resume hospice with [facility]. Faxed clinical information to [facility]. Per Kira with [facility] they will resume care for patient upon d/c day. Transportation has been arranged with [facility] at 9:45pm [phone]. Informed LOKI Palma.
--- NOTE | 2020-05-13 18:47 | NUR ---
RT NOTE PT WAS SEEN BY RT FOR CONT POX CHECK. HR 103, ROOM AIR 95% PT WAS FOUND OFF POX AND IT WAS ALSO TURNED OFF. PLACED PT BACK ON CONT POX AND HE TOLERATES WELL. PT HAS 4L NASAL CANNULA ON AT BEDSIDE FOR HIS USE NEEDED. CONT ORDERED Addendum: 05/13/20 at 1910 by Payal Espinosa RT Amended: Links added.
--- NOTE | 2020-05-13 19:05 | NUR ---
Closing Note Report given to batch dumper RN. No signs or symptoms of distress noted at this time.
--- NOTE | 2020-05-13 19:47 | NUR ---
1899. report obtained on patient./ 1919. PATIENT SEEN. AWAKE AND ALERT. XYLOCAINE APPLIED ON THE SACRAL OPEN MASS BY THE OUTGOING RN. PATIENT IS DUE FOR DISCHARGE TONIGHT.
--- NOTE | 2020-05-13 22:41 | NUR ---
0 PATIENT IS DISCHARGED. LEFT WITH EMS VIA A GURNEY AT 2220. IV WAS DISCONTINUED AND PORT-A-CATH SECURED. ALL PATIENT'S TUBES LEFT WITH HIM HOLM CATHETER, NEPHROSTOMY TUBES AND COLOSTOMY BAG.. PATIENT WAS MEDICATED FOR PAIN BEFORE DEPARTURE. ALL DUE DOCUMENTS WERE GIVEN TO THE PARAMEDICS. PATIENT LEFT IN A STABLE CONDITION.
== END 2020-05-13 22:20 | disposition hospice, home (50) | DRG 720 ==
LOC: ER 12:23 → EDBD 12:23 → OVERFLOW 12:24 → WEST WING 17:14
PROVIDERS: ATTEND Internal Medicine Nephrology
DX: A41.9 Sepsis, unspecified organism (principal); R65.20 Severe sepsis without septic shock; N17.0 Acute kidney failure with tubular necrosis; C79.51 Secondary malignant neoplasm of bone; C18.9 Malignant neoplasm of colon, unspecified; N39.0 Urinary tract infection, site not specified; M25.551 Pain in right hip; E87.1 Hypo-osmolality and hyponatremia; D62 Acute posthemorrhagic anemia; F32.9 Major depressive disorder, single episode, unspecified; Z66 Do not resuscitate; R54 Age-related physical debility; Z51.5 Encounter for palliative care; R16.2 Hepatomegaly with splenomegaly, not elsewhere classified; Z93.6 Other artificial openings of urinary tract status; Z79.899 Other long term (current) drug therapy; Z93.3 Colostomy status; Z85.048 Personal history of other malignant neoplasm of rectum, rectosigmoid junction, and anus; Z03.818 Encounter for observation for suspected exposure to other biological agents ruled out; E43 Unspecified severe protein-calorie malnutrition
CPT/HCPCS: 36415; 71045; 73502; 74176; 80048; 80053; 81001; 83605; 83735; 85007; 85014; 85018; 85025; 85027; 87040; 87077; 87081; 87086; 87186; 94762; 96365; 96375; 96376; C1729; G0378; J0696; J1756; J1885; J2185; J2405; J3490

== ENCOUNTER 2020-05-24 16:03 | Inpatient (IN) | payer OTHER ==
[~2020-05-24] VITALS: Ht 165.1 cm; Wt 89.6 kg
[~2020-05-24 16:03] MED LIST: DOCU100T15 PO; GABA300C10 PO; HYDR4TAB2 PO; OXYB5TAB24 PO
[2020-05-24] MEDS ORDERED: SODIUM CHLORIDE 0.9% 1,000 ML IVB ONE (16:24)
[2020-05-24 16:56] LABS: Monocytes # (auto) 0.7 10 ^3/uL (0-1.3)
[2020-05-24 16:58] LABS: Basophils # (auto) 0.1 10 ^3/uL (0-0.2); Basophils % (auto) 0.3 % (0.0-2.0); Eosinophils # (auto) 0 10 ^3/uL (0-0.8); Eosinophils % (auto) 0.2 % (0.0-7.0); Hematocrit 21.3 % (41.0-53.0); Lymphocytes # (auto) 0.8 10 ^3/uL (0.4-5.4); Lymphocytes % (auto) 4.8 % (10.0-50.0); Mean Corpuscular Hemoglobin 25.2 pg (28.0-32.0); Mean Corpuscular Hgb Conc. 29.1 g/dL (32.0-36.0); Mean Corpuscular Volume 86.6 fL (80.0-100.0); Monocytes % (auto) 3.9 % (0.0-12.0); Neutrophils # (auto) 15.4 10 ^3/uL (1.6-8.6); Neutrophils % (auto) 90.8 % (37.0-80.0); Platelet Count (auto) 332 10^3/uL (140-450); Red Blood Cells 2.46 10^6/uL (4.5-5.90)
[2020-05-24 17:18] LABS: Alanine Aminotransferase < 6 U/L (16-61); Albumin 1.1 g/dL (3.4-5.0); Anion Gap 7 (5-15); Aspartate Aminotransferase 15 U/L (15-37); BUN/Creatinine Ratio 12.1; Blood Urea Nitrogen 19 mg/dL (7-18); Calcium 7.3 mg/dL (8.5-10.1); Carbon Dioxide 25 mmol/L (21-32); Chloride 102 mmol/L (98-107); GFR African American 58 mL/min; GFR Non-African American 48 mL/min; Glucose 105 mg/dL (74-106); Magnesium 1.6 mg/dL (1.6-2.6); Potassium 4.2 mmol/L (3.5-5.1); Sodium 134 mmol/L (136-145)
[2020-05-24 17:20] LABS: Alkaline Phosphatase 128 U/L (45-117); Bilirubin, Total < 0.1 mg/dL (0.2-1.0); Total Protein 6.1 g/dL (6.4-8.2)
[2020-05-24 17:46] LABS: Hemoglobin 6.2 g/dL (13.5-17.5)
[2020-05-24] MEDS ORDERED: GABAPENTIN 300 MG CAP PO ONE (18:30)
[2020-05-24 19:45] LABS: Urine Bacteria MANY /hpf (None Seen); Urine Blood 1+ /uL (Negative); Urine WBC 2347 /hpf (0 - 3); Urine WBC Clumps PRESENT /hpf (None Seen)
[2020-05-24 19:58] LABS: Urine Bacteria MANY /hpf (None Seen); Urine Blood 1+ /uL (Negative); Urine Specific Gravity 1.017 (1.001-1.035); Urine WBC 275 /hpf (0 - 3); Urine WBC Clumps PRESENT /hpf (None Seen)
[2020-05-24 20:02] LABS: Urine Specific Gravity 1.012 (1.001-1.035)
[2020-05-24 20:08] LABS: Urine Bacteria MANY /hpf (None Seen); Urine Blood 3+ /uL (Negative); Urine WBC 6189 /hpf (0 - 3); Urine WBC Clumps PRESENT /hpf (None Seen)
[2020-05-24] MEDS ORDERED: ACETAMINOPHEN 325 MG TAB PO PRN (22:15)
[2020-05-24] MEDS ORDERED: cefTRIAXone 1GM/50ML D5W 50 ML IV ONE (22:15)
[2020-05-24] MEDS ORDERED: TEMAZEPAM 15 MG CAP PO PRN (22:15)
--- NOTE | 2020-05-24 23:05 | NUR ---
Admitted this 60 year old male client from E.R. department to [facility] Room # 218 A by [facility] with the chief complaint of Nephrostomy tube being accidentally dislodge and diagnosed as Dislodged Nephrostomy tube and Failure to thrive. Pt. is under the Medical-Surgical Service. Pt. is transferred from [facility] to bed, started on 2L/NC, v/s taken and recorded, clean pt. and provided partial bath and changed clothes to hospital gown and keep safe and comfortable in bed. Pt. with PATIENT ACCESS ASSOCIATE Dilaudid Pump attached to the Left upper Chest Portacath and is running according to the PATIENT ACCESS ASSOCIATE rate that was set there. Pt. is alert, awake, oriented x 4, speaks coherently and appropriately, able to respond well to health questions. Pt. on bedrest. Provided pt. assistance with ADL's and bedside nsg. care. Pt. given orientation to the Room, unit and hospital policies such as "No smoking" and visitation from family member is limited due to Covid Pandemic time, and pt. is already aware of all these hospital rules and regulation since he was admitted here @ the [facility] and was discharged from this facility within 30 days. Initial assessment done and provided pt. health teachings about pt. safety by using call-light @the bedside, bed locked @ the low position, side rails up x 2-3 and proper lighting @ the room. Pt. is already aware about the use of phone, TV and bed controls from past history of hospitalization/admission. Keep pt. clean, dry, safe, warm and comfortable in bed.
[2020-05-24 23:15] LABS: Lactic Acid w/Reflex 3.2 mmol/L (0.4-2.0)
[2020-05-24 23:30] VITALS: BP 116/45
--- NOTE | 2020-05-24 23:30 | NUR ---
Resource LOKI Watson gathered data of health history and interview pt. @ the bedside. Assessment done by the assigned LOKI Wyatt.
--- NOTE | 2020-05-25 00:30 | NUR ---
Pt. is resting and sleeping. Keep pt. warm and comfortable in bed. Maintained a safe and quiet environment.
[2020-05-25 05:00] VITALS: BP 100/61
[2020-05-25] MEDS ORDERED: GABAPENTIN 400 MG CAP PO SCH (06:00)
--- NOTE | 2020-05-25 08:00 | NUR ---
LOBES, RR=18 SAT=94 WITH O2 2 L NC, DEEP BREATHING AND COUGHING WAS ENCOURAGED, VERBALIZED UNDERSTANDING, DENIED CHEST PAIN OR SOB, HEART R=68, LT. UPPER CHEST PORT A CATH IN PLACE AND INTACT, ABDOMEN SOFT WITH ACTIVE BS, LT UPPER COLOSTOMY INTACT, SOFT BROWN OUT PUT NOTED, MID RT SIDE ABDOMINAL PORT CATH IN PLACE AND PATENT, CONECTED TO PAIN MEDICATION DEVICE, RT. PIG TAIN IN PLACE DRAINING CLEAR LIGHT YELLOW DRAIN, RT. HIP MARTIR IN PLACE AND INTACT, DRAINING SMALLL SEROSANGUINEOUS NOTED, LT FLANK NEPHROSTOMY PIG TAIL, LOOSENESS NOTED, NO DRAIN OUT PUT NOTED, HOLM CATH IN PLACE AND PATENT, DRAINING BLOOD WITH SEDIMENTATIONS NOTED, RECTAL WOUND OOZING SEROSANGUINEOUS, PROVIDED TO CLEANED AND TO TAKE A WOUND PICTURE, REFUSED, BILATERAL LOWER EXTREMITIES PITTING EDEMA +3 NOTED, RADIAL AND PEDAL PULSES PALPABLE, RESTING ON BED, HEAD OF BED ELEVATED, BED ON LOW POSITION, RAILS UP X2, CALL LIGHT ON REACH, WILL CONTINUE MONITORING.
--- NOTE | 2020-05-25 08:00 | NUR ---
RECEIVED PATIENT ALERT AND ORIENTED X4, NOT IN DISTRESS, DIMINISHED LS IN BILATERAL LUNG LOBES, RR=18 SAT=94 WITH O2 2 L NC, DEEP BREATHING AND COUGHING WAS ENCOURAGED, VERBALIZED UNDERSTANDING, DENIED CHEST PAIN OR SOB, HEART R=68, LT. UPPER CHEST PORT A CATH IN PLACE AND INTACT, LT UPPER COLOSTOMY INTACT, SOFT BROWN OUT PUT NOTED, RT. PIG TAIN IN PLACE DRAINING CLEAR LIGHT YELLOW DRAIN, RT. HIP MARTIR IN PLACE AND INTACT, DRAINING SMALLL SEROSANGUINEOUS NOTED, LT FLANK NEPHROSTOMY PIG TAIL, LOOSENESS NOTED, NO DRAIN OUT PUT NOTED, HOLM CATH IN PLACE AND PATENT, DRAINING BLOOD WITH SEDIMENTATIONS NOTED, RECTAL WOUND OOZING SEROSANGUINEOUS, PROVIDED TO CLEAND AND TO TAKE A WOUND PICTURE, REFUSED, Addendum: 05/25/20 at 1029 by Jeyson Harris RN NOT COMPLEARISTEO
[2020-05-25 08:16] LABS: Basophils % (auto) 0.3 % (0.0-2.0); Eosinophils # (auto) 0.1 10 ^3/uL (0-0.8)
[2020-05-25 08:18] LABS: Basophils # (auto) 0.1 10 ^3/uL (0-0.2); Eosinophils % (auto) 0.4 % (0.0-7.0); Hematocrit 18.8 % (41.0-53.0); Lymphocytes # (auto) 0.7 10 ^3/uL (0.4-5.4); Lymphocytes % (auto) 4.2 % (10.0-50.0); Mean Corpuscular Hemoglobin 25.3 pg (28.0-32.0); Mean Corpuscular Hgb Conc. 29.3 g/dL (32.0-36.0); Mean Corpuscular Volume 86.2 fL (80.0-100.0); Monocytes # (auto) 0.6 10 ^3/uL (0-1.3); Monocytes % (auto) 3.6 % (0.0-12.0); Neutrophils % (auto) 91.5 % (37.0-80.0); Platelet Count (auto) 309 10^3/uL (140-450); Red Blood Cells 2.18 10^6/uL (4.5-5.90); White Blood Cell 17.5 10^3/uL (4.4-10.8)
[2020-05-25 08:24] LABS: Red Cell Distribution Width 23.9 % (11.8-14.3)
[2020-05-25 08:27] LABS: Hemoglobin 5.5 g/dL (13.5-17.5)
[2020-05-25 08:35] LABS: BUN/Creatinine Ratio 12.5; Calcium 7.1 mg/dL (8.5-10.1)
--- NOTE | 2020-05-25 08:45 | NUR ---
H/H=6.2/21.3 ON 05/24/20, AT 0743 THIS MORNING H/H=5.5/18.8 REPORTED, DR. RYAN WAS NOTIFIED, PATIENT IS A JEHOVAH WITNESS AND REFUSED BLOOD TRANSFUSION, PENDING LT. NEPHROSTOMY REPLACEMENT REPORTED, WILL CONTINUE MONITORING.
[2020-05-25 09:00] VITALS: BP 102/60
[2020-05-25] MEDS: OXYBUTYNIN CHL 5 MG TAB PO SCH ×2 (09:42→21:23)
[2020-05-25] MEDS: PANTOPRAZOLE 40 MG TAB PO SCH (09:42)
[2020-05-25] MEDS: HYDROcodone-ACET 5/325MG TAB PO PRN ×2 (09:42→22:13)
[2020-05-25] MEDS: DOCUSATE SOD 100 MG CAP PO SCH ×2 (09:42→21:23)
[2020-05-25] MEDS ORDERED: MIDAZOLAM HCL 1MG/1ML-2 ML VIAL ONE (09:44)
[2020-05-25] MEDS ORDERED: fentaNYL CITRATE 100 MCG/2 ML VL ONE (09:44)
[2020-05-25] MEDS ORDERED: LIDOCAINE 2%HCL (LOCAL ANESTH.) INJ 20ML MDV ONE (09:44)
[2020-05-25] MEDS ORDERED: ENOXAPARIN SOD 40 MG/0.4 ML SYRINGE SC SCH (10:00)
--- NOTE | 2020-05-25 10:30 | NUR ---
PROP CLEANING PROVIDED, CONSENT WAS SIGNED, CHECK LIST WAS COMPLETED, WENT ON BED TO GERIATRIC PHYSICAL THERAPIST, WILL CONTINUE FOLLOW UP.
[2020-05-25 10:40] LABS: INR 1.19 (0.9-1.15)
[2020-05-25] MEDS ORDERED: diphenhdrAMINE HCL 50 MG/1 ML VL ONE (10:44)
--- NOTE | 2020-05-25 11:30 | NUR ---
WOUND CARE NOTE: IN TO SEE PATIENT AT THIS TIME FOR "RECTAL WOUND". PATIENT IS CURRENTLY UNAVAILABLE, DOWN IN FUR CLEANER FOR PROCEDURE. WILL ATTEMPT TO SEE PATIENT AT ANOTHER TIME.
[2020-05-25 13:00] VITALS: BP 101/54
--- NOTE | 2020-05-25 13:00 | NUR ---
CAME BACK FROM [facility], ALERT TO NAME AND SLEEPY, RT. AND LT. NEPHROSTOMY REPLACED REPORTED, INTACT AND IN PLACE AND DRAINING SEROSANGUINEOUS DRAIN, VS X=1707 RR=16 P=150 GO=821/54, DR. VAZQUEZ WAS CONTACTED FOR UPDATES AND FOLLOW UP, DR. VAZQUEZ WILL COME TO SEE THE PATIENT REPORTED, WILL CONTINUE MONITORING.
[2020-05-25] MEDS ORDERED: SODIUM FERR GLUC 62.5MG/5ML 125 MG in SODIUM CHL 0.9% 100 ML IV ONE (13:30)
[2020-05-25] MEDS: SODIUM CHLORIDE 0.9% 1,000 ML IV SCH (13:30)
[2020-05-25] MEDS ORDERED: EPTIFIBATIDE INJ (2MG/ML) 10ML VIAL IV ONE (13:40)
--- NOTE | 2020-05-25 14:29 | NUR ---
DR. RYDER CONTACTED FAMILY AND , PATIENT ON DNR STATUS, RESTING AND DROWSY, REMOVE FENTANYL PATCH ORDERED, HOSPICE NOTIFIED BY DR. VAZQUEZ TO [facility] SUPERVISOR KNOWLEDGE MANAGEMENT ADVISOR WITH HYDROMORPHONE IV REPORTED, WAITING FOR HOSPICE TO COME, WILL CONTINUE MONITORING.
--- NOTE | 2020-05-25 14:53 | NUR ---
[facility] NURSE VINITA BILLINGS [phone] CAME AND ASSISTANT OFFICE MANAGER PARTS REPRESENTATIVE WITH HYDROMORPHONE ORDERED.
[2020-05-25 16:48] VITALS: BP 124/65
--- NOTE | 2020-05-25 17:55 | NUR ---
KEEP SKIN CLEAN AND DRY, SACRAL WOUND PICTURE WAS TAKEN, POSITION CHANGED, RESTING AND SLEEPING ON BED, WILL CONTINUE MONITORING.
--- NOTE | 2020-05-25 18:30 | NUR ---
IRON IV SUJEY BAG ADMINISTERED ORDERED, RESTING ON BED, REFUSED THE PROVIDED DINNER TRAY, NOT IN DISTRESS, WILL CONTINUE MONITORING.
--- NOTE | 2020-05-25 19:15 | NUR ---
OPENING NOTE- NOC SHIFT PATIENT IS IN BED, EYES CLOSED, BREATHS ARE EVEN AND UNLABORED. BED IS LOCKED AT LOWEST POSITION, BED RAILS UP X2 AND HEAD OF BED IS UP >45 DEGREES. WILL CONTINUE TO MONITOR Q1H AND PRN.
--- NOTE | 2020-05-25 19:26 | NUR ---
NOT IN DISTRESS, RESTING ON BED, HEAD OF BED ELEVATED, BED ON LOW POSITION, RAILS UP X2, CALL LIGHT ON REACH, REPORT WAS GIVEN TO THE DESIGN DIRECTOR RN.
--- NOTE | 2020-05-25 20:45 | NUR ---
XAVI HOSPITALIST BLOOD PRESSURE 55/38 TEMP 102.7 , TYLENOL 650mg given at this time. AOx4 NS at 60 mls/hr Sodium ferric gluconate was given at 1200 post bilateral nephrostomy tube replacement today 05/25
[2020-05-25] MEDS: cefTRIAXone 1GM/50ML D5W 50 ML IV SCH (21:24)
[2020-05-25] MEDS ORDERED: SODIUM CHLORIDE 0.9% 500 ML IV ONE (21:45)
[2020-05-25 22:03] VITALS: BP 55/38
--- NOTE | 2020-05-25 22:11 | NUR ---
BP 135/82 TEMP 98.2 HR 110 SAT O2 97%
--- NOTE | 2020-05-25 23:15 | NUR ---
WOUND CARE WOUND CARE TO SACRAL AREA PROVIDED. PATIENT TOLERATED WELL. PATIENT REPOSITIONED IN BED. COMPLETE LINEN CHANGE. WILL CONTINUE TO MONITOR Q1H AND PRN.
[2020-05-26] MEDS: HYDROcodone-ACET 5/325MG TAB PO PRN ×4 (04:50→20:16)
[2020-05-26 05:07] VITALS: BP 61/40
[2020-05-26] MEDS: SODIUM CHLORIDE 0.9% 1,000 ML IV SCH (05:12)
--- NOTE | 2020-05-26 05:58 | NUR ---
PATIENT REPORTS UNRELIEVED PAIN /. NO PAIN MEDICATIONS DUE AT THIS TIME. WILL ENDORSE PAIN MANAGEMENT FOLLOW UP WITH MD TO DAY SHIFT RN.
[2020-05-26 06:54] LABS: Hematocrit 17.4 % (41.0-53.0); Mean Corpuscular Volume 89.8 fL (80.0-100.0); Red Blood Cells 1.94 10^6/uL (4.5-5.90)
[2020-05-26 06:59] LABS: Mean Corpuscular Hemoglobin 25.2 pg (28.0-32.0); Mean Corpuscular Hgb Conc. 28.1 g/dL (32.0-36.0); Platelet Count (auto) 211 10^3/uL (140-450)
[2020-05-26 07:12] LABS: BUN/Creatinine Ratio 10.5; Calcium 6.8 mg/dL (8.5-10.1); Potassium 4.8 mmol/L (3.5-5.1)
[2020-05-26 07:22] LABS: Red Cell Distribution Width 23.8 % (11.8-14.3)
[2020-05-26 07:24] LABS: Hemoglobin 4.9 g/dL (13.5-17.5); White Blood Cell 44.6 10^3/uL (4.4-10.8)
[2020-05-26 07:26] LABS: Basophils % (manual) 0 (0.0-2.0); Blast Cells 0; Eosinophils % (manual) 0 (0-7); Metamyelocytes % 0; Myelocytes % 0; Promyelocytes % 0; Reactive Lymphocytes 0
[2020-05-26] MEDS: ONDANSETRON HCL 4 MG/2 ML VIAL IV PRN ×2 (07:27→22:20)
--- NOTE | 2020-05-26 07:44 | NUR ---
RECEIVED PATIENT ALERT AND ORIENTED X4, NOT IN DISTRESS, DIMINISHED LS IN BILATERAL LUNG LOBES, RR=18 SAT=94 WITH O2 2 L NC, DEEP BREATHING AND COUGHING WAS ENCOURAGED, VERBALIZED UNDERSTANDING, DENIED CHEST PAIN OR SOB, HEART R=62, LT. UPPER CHEST PORT A CATH IN PLACE AND INTACT, INFUSING NS AT 60ML/HR ORDERED, LT UPPER COLOSTOMY INTACT, SOFT BROWN OUT PUT NOTED, RT. AND LT. PIG TAIL NEPHROSTOMIES IN PLACE AND INTACT, RT. HIP MARTIR IN PLACE AND INTACT, DRAINING SMALLL SEROSANGUINEOUS NOTED, HOLM CATH IN PLACE AND PATENT, DRAINING BLOOD WITH SEDIMENTATIONS NOTED, RECTAL WOUND OOZING SEROSANGUINEOUS, EDEMA 3+ BILATERAL OF LOWE EXTREMITIES NOTED, RADIAL AND PEDAL PULSES WEAK AND PALPABLE, C/O NAUSEA ZOFRAN IV WAS GIVEN, RESTING ON BED, HEAD OF BED ELEVATED, BED ON LOW POSITION, RAILS UP X2, CALL LIGHT ON REACH, WILL CONTINUE MONITORING.
--- NOTE | 2020-05-26 07:54 | NUR ---
WBC =44.6, H/H=4.9/17.4 REPORTED, DR. STOKES WAS PAGED AND WAITING FOR CALL BACK.
[2020-05-26 08:35] VITALS: BP 88/45
[2020-05-26] MEDS ORDERED: HYDROmorphone HCL 2 MG/ML VL IV ONE (08:45)
[2020-05-26 09:27] LABS: Band Neutrophils % (manual) 24; Lymphocytes % (manual) 1 (10.0-50.0); Monocytes % (manual) 2 (0-12)
[2020-05-26] MEDS: OXYBUTYNIN CHL 5 MG TAB PO SCH ×2 (10:28→21:39)
[2020-05-26] MEDS: DOCUSATE SOD 100 MG CAP PO SCH ×2 (10:28→21:35)
[2020-05-26] MEDS: PANTOPRAZOLE 40 MG TAB PO SCH (10:28)
--- NOTE | 2020-05-26 11:00 | NUR ---
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 SPECIALTY AIR MATTRESS BEEN ORDERED FOR PATIENT. HE SHOULD BE PLACED, PENDING DELIVERY BY [facility]. PATIENT IS COMFORT MEASURES ONLY AT THIS POINT. ADMITTING DIAGNOSIS IS DISLODGING OF NEPHROSTOMY TUBE, FAILURE TO THRIVE. 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 TUMOR IS DRAINING MODERATE AMOUNTS OF FOUL ODOROUS SEROUS DRAINAGE. TUMOR IS CANSECO, RAISED- CAULIFLOWER IN APPEARANCE. PERIWOUND SKIN IS PINK, LIGHT RED. PATIENT WOULD BENEFIT FROM BID/PRN DRESSING CHANGES CONSISTING OF LARGE ABD PADS, GENTLY APPLIED WITH PAPER TAPE, CHANGING WHEN SATURATED, SPECIALTY AIR MATTRESS FOR COMFORT, FREQUENT TURN SCHEDULE Q 2 HOURS, PRN CONDITION PERMITS, WITH PRESSURE REDISTRIBUTION USING PILLOWS/WEDGES, SKIN/WOUND CARE PLAN, CONTINUED MONITORING BY WOUND CARE TEAM. Addendum: 05/26/20 at 1619 by Carolyn Saldana RN Amended: Links added.
[2020-05-26 12:06] VITALS: BP 78/56
[2020-05-26] MEDS: SODIUM FERR GLUC 62.5MG/5ML 125 MG in SODIUM CHL 0.9% 100 ML IV SCH (13:01)
[2020-05-26 16:49] VITALS: BP 78/54
--- NOTE | 2020-05-26 19:22 | NUR ---
NOT IN DISTRESS, RESTING ON BED, HEAD OF BED ELEVATED, BED ON LOW POSITION, RAILS UP X2, CALL LIGHT ON REACH, REPORT WAS GIVEN TO THE WEIGHT CONTROL ENGINEER RN.
--- NOTE | 2020-05-26 20:16 | NUR ---
RECEIVED PATIENT FROM DAY SHIFT RN. PATIENT RESTING IN BED. NO S/S OF DISTRESS NOTED. C/O PAIN @ 10/10. PATIENT'S BP 94/67, HR 83, PATIENT AGREED TO HAVE NORCO FOR HIS PAIN. MEDICATED PATIENT ORDERED. HOLM CATH IN PLACE AND DRAINING TO GRAVITY. BL NEPHROSTOMIES AND MARTIR DRAIN IN PLACE. COLOSTOMY IN PLACE AND DRAINED. WOUND NOTED ON SACRUM AND RECTAL AREA, AND OPEN TO AREA. REPOSITIONED PATIENT. PATIENT TOLERATED WELL. POC INSTRUCTED AND ENCOURAGED PATIENT TO CALL FOR CREDIT RISK MANAGER IF NEEDED. BED IN LOWEST LOCKED POSITION WITH SIDE RAILS UP X 2. CALL FINCH WITHIN REACH. ALARM ON. CONTINUE TO MONITOR FOR CHANGES Q1H AND PRN.
--- NOTE | 2020-05-26 20:23 | NUR ---
PATIENT'S CALLED, PASSWORD NOT CORRECT, NO INFO RELEASE. PATIENT AWARE. CONTINUE TO MONITOR.
--- NOTE | 2020-05-26 21:15 | NUR ---
REASSESSED PAIN @ 06/10, WILL CALL HOSPITALIST LATER FOR MORE STRONGER PAIN MEDICATION PER PATIENT'S REQUEST. CONTINUE TO MONITOR.
[2020-05-26] MEDS: cefTRIAXone 1GM/50ML D5W 50 ML IV SCH (21:39)
[2020-05-26 22:00] VITALS: BP 82/58
--- NOTE | 2020-05-26 22:06 | NUR ---
HOSPITALIST Called/paged MILENA MORALES called re:PATIENT'S PAIN @ 9/10 AFTER MEDICATION GIVEN EARLIER, WOULD LIKE TO HAVE MORE STRONGER PAIN MEDICATIONS. Waiting for call back. Continue care.
--- NOTE | 2020-05-26 22:28 | NUR ---
HOSPITALIST returned call MILENA MORALES returned call, updated on patient status and reason for call, orders received. NORCO 5/325MG ONCE. Continue care.
[2020-05-26] MEDS ORDERED: HYDROcodone-ACET 5/325MG TAB PO ONE (22:30)
--- NOTE | 2020-05-26 22:50 | NUR ---
EXPLAINED TO PATIENT THAT HOSPITALIST ONLY ORDER ONE EXTRA DOSE OF NORCO FOR HIS PAIN. PATIENT AGREED TO TAKE NORCO FOR HIS PAIN @ 10/10 FOR NOW. MEDICATED PATIENT ORDERED. CONTINUE TO MONITOR.
--- NOTE | 2020-05-26 23:05 | NUR ---
CLEANED WOUND WITH WOUND CLEANSER, AND IRRIGATED WITH NS, PADDED TO DRY. PATIENT TOLERATED WELL. CONTINUE TO MONITOR.
--- NOTE | 2020-05-26 23:45 | NUR ---
REASSESSED PAIN, @ 06/10. CONTINUE TO MONITOR.
[2020-05-27] MEDS: SODIUM CHLORIDE 0.9% 1,000 ML IV SCH ×3 (00:02→18:02)
[2020-05-27] MEDS: HYDROcodone-ACET 5/325MG TAB PO PRN ×3 (01:55→23:49)
--- NOTE | 2020-05-27 01:57 | NUR ---
MEDICATED PATIENT FOR PAIN @ 06/10. PATIENT REFUSED TO BE TURNED AT THIS TIME. EDUCATED PATIENT ON BENEFITS OF TURNING, PATIENT STILL REFUSED. WILL TRY IT LATER. CONTINUE TO MONITOR.
--- NOTE | 2020-05-27 02:55 | NUR ---
REASSESSED PAIN, @ 05/10. CONTINUE TO MONITOR.
[2020-05-27 05:00] VITALS: BP 94/50
--- NOTE | 2020-05-27 06:10 | NUR ---
PATIENT C/O PAIN @ 07/10. PATIENT'S BP 94/50. PATIENT AGREED TO HAVE NORCO. MEDICATED PATIENT ORDERED. CONTINUE TO MONITOR.
--- NOTE | 2020-05-27 08:00 | NUR ---
Opening Shift Note Assumed care of patient, awake and alert. No S/S of distress/SOB, 8/10 generalized pain. Instructed on POC and to call for assist PRN, will continue to monitor for changes Q1hr and PRN.
[2020-05-27 09:30] VITALS: BP 138/104
[2020-05-27] MEDS: DOCUSATE SOD 100 MG CAP PO SCH ×2 (10:43→22:17)
[2020-05-27] MEDS: PANTOPRAZOLE 40 MG TAB PO SCH (10:43)
[2020-05-27] MEDS: OXYBUTYNIN CHL 5 MG TAB PO SCH ×2 (10:43→22:18)
[2020-05-27] MEDS: HYDROmorphone HCL 2 MG/ML VL IV PRN ×2 (10:49→19:55)
[2020-05-27] MEDS: fentaNYL 50MCG/HR 50 MCG/HR PAT TD SCH (10:52)
--- NOTE | 2020-05-27 11:36 | NUR ---
BP-68/40, HR-107, O2 sat-88%. Patient is alert and oriented x4 with generalized weakness. Paged Dr. Franklin and returned call. Orders received. Addendum: 05/27/20 at 1141 by Ginette Lennon RN O2 per nasal cannula increased to 4lpm.
[2020-05-27] MEDS ORDERED: SODIUM CHLORIDE 0.9% 500 ML IV ONE (11:45)
[2020-05-27 12:44] VITALS: BP 68/40
--- NOTE | 2020-05-27 12:57 | NUR ---
Nutrition Assessment Est energy needs 0935-9526 kcal (20-25 kcal/kg BW 83.3kg) Est protein needs 67-83g (0.8-1g/kg BW 83.3kg) WIll reassess prn. Addendum: 05/27/20 at [address] Amended: Links added.
--- NOTE | 2020-05-27 13:41 | NUR ---
BP-80/54, HR-103, C9ugr-490%, patient is alert and oriented x4. Urine culture is positive for E. Coli, ESBL paged Dr. Franklin, waiting for call back. Addendum: 05/27/20 at 1344 by Ginette Lennon RN BP-80/54 after 500ml NS bolus.
[2020-05-27] MEDS: SODIUM FERR GLUC 62.5MG/5ML 125 MG in SODIUM CHL 0.9% 100 ML IV SCH (14:13)
--- NOTE | 2020-05-27 15:14 | NUR ---
Dr. Franklin returned call, updated on current status of patient and result of urine culture. Orders received.
[2020-05-27] MEDS ORDERED: MEROPENEM 500MG IVPB 50 ML IV ONE (15:15)
--- NOTE | 2020-05-27 16:24 | NUR ---
assessment Patient is a 60 year old male who was on hospice with [facility] hospice prior to admission. Per Kira at [facility] they will not take patient back on service. I informed Sarah patient has a new consult for hospice eval. Per patients Sarah she wants the hospice the doctor she has been speaking to and who is treating patient. I informed Sarah Camp is with [facility]. Per Sarah that is who she wants to speak with. order cordon been sent to [facility]. Dina with hospice will contact patients Sarah. I will follow up in the morning. Addendum: 05/27/20 at 1629 by Jerri MAIN Amended: Links added.
[2020-05-27 16:27] VITALS: BP 74/51
--- NOTE | 2020-05-27 19:40 | NUR ---
Opening Shift Note Assumed care of patient, awake and alert. No S/S of distress/SOB. Pain score of 10/10. Will give pain medicine.Insructed on POC and to call for assist PRN, will continue to monitor for changes Q1hr and PRN.
--- NOTE | 2020-05-27 19:55 | NUR ---
Pain medication given RN Mary Jane gave pain medication with pain level of 10/10. Blood pressure 106/92.
--- NOTE | 2020-05-27 20:00 | NUR ---
Patient refused to be turned.Will continue to educate and monitor.
[2020-05-27 22:00] VITALS: BP 86/48
[2020-05-27] MEDS ORDERED: MEROPENEM 500MG IVPB 50 ML IV SCH (22:00)
--- NOTE | 2020-05-27 23:49 | NUR ---
Pain medication given Blood pressure 89/61, HR 87, RR 20, O2 sat 95. Gave norco. Will continue to educate and monitor.
[2020-05-28] MEDS: ONDANSETRON HCL 4 MG/2 ML VIAL IV PRN (01:30)
--- NOTE | 2020-05-28 01:45 | NUR ---
Wound care Wound cleanser , Ns irrigation and pat to dry. Vitals signs bp 89/64, hr 88, rr 18, o2 sat 98%. Turn to right side. will continue to monitor pt.
[2020-05-28] MEDS: HYDROcodone-ACET 5/325MG TAB PO PRN ×4 (04:50→22:35)
--- NOTE | 2020-05-28 04:51 | NUR ---
PATIENT C/O PAIN @ 10, PATIENT'S BP 86/63, HR 83. PATIENT AGREED TO HAVE NORCO. MEDICATED PATIENT ORDERED. CONTINUE TO MONITOR.
[2020-05-28] MEDS: SODIUM CHLORIDE 0.9% 1,000 ML IV SCH ×2 (04:54→09:05)
[2020-05-28 05:00] VITALS: BP 86/63
--- NOTE | 2020-05-28 07:20 | NUR ---
OPENING SHIFT NOTE ASSUMED CARE OF PATIENT FROM JERSEY KNITTER RN NATALIIA. PATIENT IS AWAKE, ALERT, AND ORIENTED X4. PATIENT HAS NO S/S OF DISTRESS/SOB OR PAIN. INSTRUCTED PATIENT ON POC, PATIENT VERBALIZED UNDERSTANDING. BED IS IN LOWEST POSITION WITH SIDE RAILS RAISED X2, BED WHEELS LOCKED, BILATERAL NEPHROSTOMY TUBES ARE DRAINING YELLOW URINE, HOLM IS HANGING BELOW BLADDER AND IS DRAINING CLOUDY DARK RED URINE, MARTIR DRAIN COMPRESSED AND IS DRAINING PUS, AND CALL LIGHT IS WITHIN REACH. WILL CONTINUE TO MONITOR.
[2020-05-28 08:00] VITALS: BP 93/66
[2020-05-28 09:00] VITALS: BP 93/66
[2020-05-28] MEDS: OXYBUTYNIN CHL 5 MG TAB PO SCH ×2 (09:06→22:35)
[2020-05-28] MEDS: PANTOPRAZOLE 40 MG TAB PO SCH (09:07)
[2020-05-28] MEDS: DOCUSATE SOD 100 MG CAP PO SCH ×2 (09:07→22:34)
[2020-05-28] MEDS: MEROPENEM 1GM IVPB 100 ML IV SCH ×2 (10:38→22:33)
[2020-05-28] MEDS: NYSTATIN (MOUTH-THROAT) 500,000 UNITS/5 ML SUSP MT SCH ×3 (12:47→22:42)
[2020-05-28] MEDS: LIDOCAINE HCL 2% TOP JELLY 5ML TOP SCH (12:48)
[2020-05-28] MEDS: SODIUM FERR GLUC 62.5MG/5ML 125 MG in SODIUM CHL 0.9% 100 ML IV SCH (12:48)
[2020-05-28 13:00] VITALS: BP 90/65
--- NOTE | 2020-05-28 15:58 | NUR ---
re-assessment Per Stephanie at [facility] they have accepted patient for service, but the is now stating she wants patient to stay at the hospital until he is better. Dr Camp will return my call when he is done seeing the patient. Addendum: 05/28/20 at 1603 by Jerri MAIN Amended: Links added.
[2020-05-28 17:00] VITALS: BP 95/68
--- NOTE | 2020-05-28 18:56 | NUR ---
CLOSING SHIFT NOTE ENDORSED CARE FOR ENDBAND CUTTER HAND RN. PATIENT HAS NO S/S OF DISTRESS/SOB OR PAIN AT THIS TIME.
--- NOTE | 2020-05-28 19:40 | NUR ---
Opening Shift Note Assumed care of patient. Patient AAOX4. No S/S of distress/SOB on 2L NC. Complaints of Left Flank pain 07/10. Left upper chest Josue cath running NS @ 100mL/HR. Bed in lowest locked position, safety precautions in place and call light within reach. Instructed on POC and to call for assist PRN, will continue to monitor for changes Q1hr and PRN. Signed: 05/29/20 at 705 by DEONTE LOWE <Co-Signature Required> Co-Signed: 05/29/20 at 705 by Aleta Mg RN
[2020-05-28 22:00] VITALS: BP 100/63
[2020-05-29] MEDS: HYDROcodone-ACET 5/325MG TAB PO PRN ×2 (04:40→09:30)
[2020-05-29] MEDS: SODIUM CHLORIDE 0.9% 1,000 ML IV SCH ×3 (04:59→12:43)
[2020-05-29 05:00] VITALS: BP 87/57
[2020-05-29] MEDS: NYSTATIN (MOUTH-THROAT) 500,000 UNITS/5 ML SUSP MT SCH ×4 (06:05→21:18)
--- NOTE | 2020-05-29 07:15 | NUR ---
OPENING SHIFT NOTE ASSUMED CARE OF PATIENT FROM RAG WASHER RN CHONG. PATIENT IS AWAKE, ALERT, AND ORIENTED X4. PATIENT HAS NO S/S OF DISTRESS/SOB OR PAIN. INSTRUCTED PATIENT ON POC, PATIENT VERBALIZED UNDERSTANDING. BED IS IN LOWEST POSITION WITH SIDE RAILS RAISED X2, BED WHEELS LOCKED, BILATERAL NEPHROSTOMY TUBES ARE DRAINING YELLOW URINE, HOLM IS HANGING BELOW BLADDER AND IS DRAINING CLOUDY DARK RED URINE, MARTIR DRAIN COMPRESSED AND IS DRAINING PUS, AND CALL LIGHT IS WITHIN REACH. WILL CONTINUE TO MONITOR.
[2020-05-29 08:10] VITALS: BP 95/56
[2020-05-29 09:00] VITALS: BP 95/60
[2020-05-29] MEDS: LIDOCAINE HCL 2% TOP JELLY 5ML TOP SCH (09:29)
[2020-05-29] MEDS: DOCUSATE SOD 100 MG CAP PO SCH ×2 (09:30→21:19)
[2020-05-29] MEDS: PANTOPRAZOLE 40 MG TAB PO SCH (09:30)
[2020-05-29] MEDS: OXYBUTYNIN CHL 5 MG TAB PO SCH ×2 (09:30→21:19)
[2020-05-29] MEDS: MEROPENEM 1GM IVPB 100 ML IV SCH ×2 (09:31→22:00)
[2020-05-29] MEDS: HYDROmorphone HCL 2 MG/ML VL IV PRN ×5 (10:06→23:40)
[2020-05-29] MEDS: SODIUM FERR GLUC 62.5MG/5ML 125 MG in SODIUM CHL 0.9% 100 ML IV SCH (12:38)
[2020-05-29 12:56] VITALS: BP 95/68
[2020-05-29 17:00] VITALS: BP 98/68
--- NOTE | 2020-05-29 18:49 | NUR ---
CLOSING SHIFT NOTE ENDORSED CARE TO [facility] APPRENTICE LOKI NOONAN. PATIENT HAS NO S/S OF DISTRESS/SOB OR PAIN AT THIS TIME.
[2020-05-29 21:00] VITALS: BP 91/71
--- NOTE | 2020-05-29 22:19 | NUR ---
R nephrostomy emptied of 220 dk yellow urine.
[2020-05-30] MEDS: HYDROmorphone HCL 2 MG/ML VL IV PRN ×9 (01:28→22:50)
[2020-05-30 05:00] VITALS: BP 99/64
--- NOTE | 2020-05-30 06:02 | NUR ---
Entered pt's room to give routine meds and pain med and change scrotal area dressing. Pt took meds but stated he did not want dressing change at this time. Pt wants to sleep more.
[2020-05-30] MEDS: NYSTATIN (MOUTH-THROAT) 500,000 UNITS/5 ML SUSP MT SCH ×4 (06:07→22:49)
--- NOTE | 2020-05-30 07:20 | NUR ---
Opening Shift Note Assumed care of patient, awake and alert. No S/S of distress/SOB, reports chronic pain. Will medicate as ordered. Port a cath dislogded, new one to be placed. Instructed on POC and to call for assist PRN, will continue to monitor for changes Q1hr and PRN.
[2020-05-30] MEDS: fentaNYL 50MCG/HR 50 MCG/HR PAT TD SCH (07:46)
[2020-05-30 08:02] LABS: Basophils # (auto) 0 10 ^3/uL (0-0.2); Eosinophils # (auto) 0.1 10 ^3/uL (0-0.8); Eosinophils % (auto) 0.3 % (0.0-7.0); Monocytes % (auto) 2.2 % (0.0-12.0); White Blood Cell 20.1 10^3/uL (4.4-10.8)
[2020-05-30 08:04] LABS: Hematocrit 17.6 % (41.0-53.0); Lymphocytes # (auto) 0.8 10 ^3/uL (0.4-5.4); Lymphocytes % (auto) 3.9 % (10.0-50.0); Mean Corpuscular Hemoglobin 25.9 pg (28.0-32.0); Mean Corpuscular Hgb Conc. 29.7 g/dL (32.0-36.0); Mean Corpuscular Volume 87.1 fL (80.0-100.0); Monocytes # (auto) 0.4 10 ^3/uL (0-1.3); Neutrophils # (auto) 18.8 10 ^3/uL (1.6-8.6); Neutrophils % (auto) 93.6 % (37.0-80.0); Platelet Count (auto) 217 10^3/uL (140-450); Red Blood Cells 2.02 10^6/uL (4.5-5.90)
[2020-05-30 08:12] LABS: Red Cell Distribution Width 22.3 % (11.8-14.3)
[2020-05-30 08:14] LABS: Hemoglobin 5.2 g/dL (13.5-17.5)
[2020-05-30 08:21] LABS: BUN/Creatinine Ratio 15.3; Calcium 6.8 mg/dL (8.5-10.1); Potassium 3.9 mmol/L (3.5-5.1)
[2020-05-30 09:00] VITALS: BP 91/67
[2020-05-30] MEDS ORDERED: MEROPENEM 1GM IVPB 100 ML IV SCH (10:00)
--- NOTE | 2020-05-30 10:00 | NUR ---
I SPOKE WITH PATIENTS , SHE STATES HER CONCERNS ABOUT PAIN CONTROL AND WOUND CARE. I EXPLAINED WANT I WOULD DO AND HOW I WOULD DO IT, SHE VERBILIZED UNDERSTANDING. I WILL INFORM MD ABOUT PAIN CONTROL. NEW ORDERS RECEIVED. PATIENT INFORMED, WILL CONTINUE TO MONITOR.
[2020-05-30] MEDS: MEROPENEM 1GM IVPB 100 ML IV SCH ×2 (10:24→22:49)
[2020-05-30] MEDS: PANTOPRAZOLE 40 MG TAB PO SCH (10:25)
[2020-05-30] MEDS: OXYBUTYNIN CHL 5 MG TAB PO SCH ×2 (10:25→22:50)
[2020-05-30] MEDS: DOCUSATE SOD 100 MG CAP PO SCH ×2 (10:25→22:49)
[2020-05-30] MEDS: LIDOCAINE HCL 2% TOP JELLY 5ML TOP SCH (10:25)
[2020-05-30] MEDS: SODIUM FERR GLUC 62.5MG/5ML 125 MG in SODIUM CHL 0.9% 100 ML IV SCH (12:38)
[2020-05-30] MEDS: SODIUM CHLORIDE 0.9% 1,000 ML IV SCH ×2 (12:38→14:15)
[2020-05-30 13:00] VITALS: BP 91/60
--- NOTE | 2020-05-30 15:24 | NUR ---
Nutrition Followup Notes Pt wt is 90.6 kg Pt was sleeping with no relatives at bedside when rounded this morning. Pt is with a Regular diet, appetite is poor, aeb ave 38% PO intake over 4 meals. Pt with no distress per RN doc. Est energy needs 9833-1820 kcal (20-25 kcal/kg BW 83.3kg) Est protein needs 67-83g (0.8-1g/kg BW 83.3kg) Will reassess prn. LABS: BUN 20 H. Cr 1.31 H, Gluc 73 L, Ca 6.8 L, Alb 1.1 L GI: Pt had 1 BM on 05/26 per RN doc BS: 10 high risk. Refer to wound assessment report for full details. PES: Obese r/t caloric intake in excess of needs aeb pt with a BMI of 30.6kg/m2 Altered nutrition related labs r/t current and chronic medical conditions aeb pt with elevated RFTs, severe hypoalb Comments 1) Continue to monitor po intake, labs, skin 2) refer pt to [facility] on DC 3) Continue current plan of care
[2020-05-30 17:00] VITALS: BP 91/63
[2020-05-30 22:00] VITALS: BP 91/59
[2020-05-30] MEDS: HYDROcodone-ACET 5/325MG TAB PO PRN (23:45)
[2020-05-31] MEDS: HYDROmorphone HCL 2 MG/ML VL IV PRN ×6 (02:08→22:37)
[2020-05-31 05:56] VITALS: BP 96/55
[2020-05-31] MEDS: HYDROcodone-ACET 5/325MG TAB PO PRN ×3 (06:06→20:40)
[2020-05-31] MEDS: NYSTATIN (MOUTH-THROAT) 500,000 UNITS/5 ML SUSP MT SCH ×4 (06:10→22:33)
[2020-05-31] MEDS: SODIUM CHLORIDE 0.9% 1,000 ML IV SCH (06:55)
[2020-05-31 08:30] VITALS: BP 87/60
--- NOTE | 2020-05-31 09:15 | NUR ---
PATIENT REFUSING TO BE TURNED AT THIS TIME. PER PATIENT HE IS COMFORTABLE THE WAY HE IS NOW.
[2020-05-31] MEDS: PANTOPRAZOLE 40 MG TAB PO SCH (09:22)
[2020-05-31] MEDS: OXYBUTYNIN CHL 5 MG TAB PO SCH ×2 (09:22→22:33)
[2020-05-31] MEDS: MEROPENEM 1GM IVPB 100 ML IV SCH ×2 (09:22→22:33)
[2020-05-31] MEDS: DOCUSATE SOD 100 MG CAP PO SCH ×2 (09:22→22:33)
[2020-05-31] MEDS: LIDOCAINE HCL 2% TOP JELLY 5ML TOP SCH ×3 (09:23→09:34)
--- NOTE | 2020-05-31 09:33 | NUR ---
Pain Patient complaining of pain 10/10. Administered available Dilaudid despite low BP as patient is comfort measures only. Will cont to monitor patient.
--- NOTE | 2020-05-31 10:25 | NUR ---
Pain Patient still complaining of pain 07/10. Administered available [place] at this time as Dilaudid is still not due. Will cont to monitor patient.
--- NOTE | 2020-05-31 11:09 | NUR ---
Opening Shift Note Assumed care of patient, awake and alert. No S/S of distress/SOB. Patient complaining of pain 07/10. Instructed on POC and to call for assist PRN, will continue to monitor for changes Q1hr and PRN. Fall precautions in place per safety protocol. Addendum: 05/31/20 at 1113 by NANCI DELENO RN RN 0730 opening note
--- NOTE | 2020-05-31 12:00 | NUR ---
PATIENT CONTINUES TO REFUSE TURNING. PATIENT EDUCATED ON BENEFITS OF TURNING. PER PATIENT "MAYBE LATER." WILL CONT TO MONITOR.
[2020-05-31] MEDS: SODIUM FERR GLUC 62.5MG/5ML 125 MG in SODIUM CHL 0.9% 100 ML IV SCH (12:27)
[2020-05-31 12:39] VITALS: BP 88/58
--- NOTE | 2020-05-31 12:40 | NUR ---
PAIN Patient requesting pain medication for pain 07/10. Administered Dilaudid at this time. Patient refusing to turn at this time. States he is in too much pain to turn and is comfortable at this time. Will cont to monitor patient.
[2020-05-31 16:36] VITALS: BP 83/50
--- NOTE | 2020-05-31 18:06 | NUR ---
PATIENT REFUSING TO BE TURNED AT THIS TIME. WILL CONT TO MONITOR.
--- NOTE | 2020-05-31 18:17 | NUR ---
Emptied 500 mls of cloudy yellow urine from R nephrostomy and 50mls from L nephrostomy.
--- NOTE | 2020-05-31 19:00 | NUR ---
OPENING SHIFT NOTE ASSUMED CARE OF PATIENT. PATIENT IS AWAKE, ALERT, AND ORIENTED X4. PATIENT HAS NO S/S OF DISTRESS/SOB, PATIENT COMPLAINED OF PAIN. INSTRUCTED PATIENT ON POC, PATIENT VERBALIZED UNDERSTANDING. BED IS IN LOWEST POSITION WITH SIDE RAILS RAISED X2, BED WHEELS LOCKED, HOLM IS HANGING BELOW BLADDER ALSO PATIENT HAS BILATERAL NEPHROSTOME TUBES AND IS DRAINING YELLOW URINE WITH LOT OF SEDIMENT, BEDSIDE COMMODE AND CALL LIGHT IS WITHIN REACH. WILL CONTINUE TO MONITOR.
--- NOTE | 2020-05-31 19:03 | NUR ---
Endorsed report to night RN Kunal. Nurse aware of patient being comfort measures/DNR.
[2020-05-31] MEDS: ONDANSETRON HCL 4 MG/2 ML VIAL IV PRN (19:45)
[2020-05-31 22:15] VITALS: BP 97/68
[2020-06-01] MEDS: SODIUM CHLORIDE 0.9% 1,000 ML IV SCH ×2 (00:44→16:15)
[2020-06-01] MEDS: HYDROcodone-ACET 5/325MG TAB PO PRN ×2 (00:48→18:30)
[2020-06-01] MEDS: ONDANSETRON HCL 4 MG/2 ML VIAL IV PRN ×2 (00:48→11:44)
[2020-06-01] MEDS: HYDROmorphone HCL 2 MG/ML VL IV PRN ×6 (01:41→16:54)
[2020-06-01] MEDS: NYSTATIN (MOUTH-THROAT) 500,000 UNITS/5 ML SUSP MT SCH ×2 (05:16→12:00)
[2020-06-01 05:22] VITALS: BP 91/54
[2020-06-01] MEDS: PANTOPRAZOLE 40 MG TAB PO SCH (08:20)
[2020-06-01] MEDS: DOCUSATE SOD 100 MG CAP PO SCH (08:20)
[2020-06-01] MEDS: OXYBUTYNIN CHL 5 MG TAB PO SCH (08:21)
[2020-06-01 09:00] VITALS: BP 87/52
[2020-06-01] MEDS: MEROPENEM 1GM IVPB 100 ML IV SCH ×2 (09:36→14:24)
[2020-06-01 13:00] VITALS: BP 99/58
[2020-06-01] MEDS ORDERED: fentaNYL 100MCG/HR 100 MCG/HR PAT TD SCH (15:00)
--- NOTE | 2020-06-01 15:19 | NUR ---
re-assessment Per patient and patients Sarah they have agreed on [facility] hospice. All equipment will be delivered by 5pm today and [employer] will transport patient home between 530pm and 630pm post discharge. Renay MANJARREZ has been notified as well as patients Sarah. Sarah verbalized understanding and agreed to discharge plan home on hospice. Addendum: 06/01/20 at 1521 by Jerri MAIN Amended: Links added.
[2020-06-01 16:23] VITALS: BP 87/52
[2020-06-01 17:18] VITALS: BP 92/58
--- NOTE | 2020-06-01 18:30 | NUR ---
Patient discharged via gurney, along with all personal belongings; no distress noted at time of departure.
== END 2020-06-01 22:12 | disposition hospice, home (50) | DRG 466 ==
LOC: EDBD 16:03 → ER 16:03 → CENTRAL 16:04
PROVIDERS: ADMIT Nurse Practitioner; ATTEND Internal Medicine Nephrology
PROC: 0T25X0Z Change Drainage Device in Kidney, External Approach (ICD-10-PCS; principal; 2020-05-25)
PROC: 0T9130Z Drainage of Left Kidney with Drainage Device, Percutaneous Approach (ICD-10-PCS; 2020-05-25)
PROC: BT131ZZ Fluoroscopy of Bilateral Kidneys using Low Osmolar Contrast (ICD-10-PCS; 2020-05-25)
DX: T83.022A Displacement of nephrostomy catheter, initial encounter (principal); A41.51 Sepsis due to Escherichia coli [E. coli]; N17.0 Acute kidney failure with tubular necrosis; E43 Unspecified severe protein-calorie malnutrition; R65.20 Severe sepsis without septic shock; C19 Malignant neoplasm of rectosigmoid junction; N18.3 Chronic kidney disease, stage 3 (moderate); Z93.3 Colostomy status; C78.5 Secondary malignant neoplasm of large intestine and rectum; Z66 Do not resuscitate; C78.01 Secondary malignant neoplasm of right lung; C78.02 Secondary malignant neoplasm of left lung; D62 Acute posthemorrhagic anemia; N13.6 Pyonephrosis; Y83.8 Other surgical procedures as the cause of abnormal reaction of the patient, or of later complication, without mention of misadventure at the time of the procedure; K62.89 Other specified diseases of anus and rectum; Z51.5 Encounter for palliative care; Z79.899 Other long term (current) drug therapy; Z82.49 Family history of ischemic heart disease and other diseases of the circulatory system; Z85.048 Personal history of other malignant neoplasm of rectum, rectosigmoid junction, and anus; Z93.6 Other artificial openings of urinary tract status; Z68.32 Body mass index [BMI] 32.0-32.9, adult; Y92.098 Other place in other non-institutional residence as the place of occurrence of the external cause
CPT/HCPCS: 36415; 50432; 50435; 71045; 76942; 80048; 80053; 81001; 82565; 83605; 83735; 85007; 85025; 85027; 85610; 87040; 87081; 87086; 87088; 87186; 99152; 99153; C1729; G0378; J0696; J2185; J2250; J2405